=== PATIENT | female | born 1980 | race African-American/Black ===

== ENCOUNTER 2017-06-07 20:01 | Inpatient (IN) | payer MEDICAID ==
[2017-06-07] MEDS ORDERED: HYDROmorphone 2 MG/ML SDV IVPUSH ONE (20:29)
[2017-06-07] MEDS ORDERED: Pantoprazole 40 MG Vial IVPUSH ONE (20:29)
[2017-06-07] MEDS ORDERED: Sodium Chloride 0.9% 1,000 ML IV ONE ×2 (20:29→22:56)
[2017-06-07] MEDS ORDERED: Sodium Chloride 0.9% 2.5 ML Syringe FLUSH PRN (20:29)
[2017-06-07] MEDS ORDERED: Sodium Chloride 0.9% 10 ML Syringe FLUSH PRN (20:29)
[2017-06-07] MEDS ORDERED: Ondansetron 4 MG/2 ML SDV IVPUSH ONE (20:29)
--- NOTE | 2017-06-07 20:34 | EDM.PDOC ---
ED HPI GENERAL MEDICAL PROBLEM - General Chief Complaint: Abdominal Pain Stated Complaint: PT HAS STOMACH AND BACK PAIN Time Seen by Provider: 06/07/17 20:22 - History of Present Illness INITIAL COMMENTS - FREE TEXT/NARRATIVE: HISTORY AND PHYSICAL: History of present illness: The patient is a 36-year-old female who presents with epigastric and left upper abdominal pain associated with nausea and vomiting but no diarrhea which is similar to her 2 prior episodes of pancreatitis. Patient states that she has only one admission for the pancreatitis in the past and she has had a cholecystectomy as they hypothesized that was the cause of the pancreatitis. The patient does drink socially and last drink alcohol a few days ago and she is aware that this can trigger her pancreatitis but she says she is not drinking excessively or taking any medications that would cause this. The patient presents to me tonight stating that she has had several weeks of this discomfort but it seems to be accelerating and she's been trying to treat it at home symptomatically. Patient has not had a fever but says the pain is in the typical location for pancreatitis which is epigastric and left upper abdomen radiating to her back. She has no chest pain or shortness of breath. She has no flank pain no urinary complaints and she says that she is not "because she knows". 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 Patient has not been using anything strong for this pain or nausea and vomiting. Review of systems: As per history of present illness and below otherwise all systems reviewed and negative. Past medical history: As per history of present illness and as reviewed below otherwise noncontributory. Surgical history: As per history of present illness and as reviewed below otherwise noncontributory. Social history: No reported history of drug or alcohol abuse. Family history: As per history of present illness and as reviewed below otherwise noncontributory. Physical exam: General: Well-developed well-nourished female who is nontoxic and speaking clearly to me in the ED. She has a slight faint smell of either mouthwash or alcohol on her breath. Vital signs are stable HEENT: Atraumatic, normocephalic, pupils reactive, negative for conjunctival pallor or scleral icterus, mucous membranes moist, throat clear, neck supple, nontender, trachea midline. Lungs: Clear to auscultation, breath sounds equal bilaterally, chest nontender. Heart: S1S2, regular, negative for clicks, rubs, or JVD. Abdomen: Soft, nondistended, mildly tender in the epigastrium and left upper quadrant on deep palpation without rebound or guarding and bowel sounds are hypoactive. Negative for masses or hepatosplenomegaly. Negative for costovertebral tenderness. Pelvis: Stable nontender. Genitourinary: Deferred. Rectal: Deferred. Extremities: Atraumatic, negative for cords or calf pain. Neurovascular unremarkable. No pedal edema or leg asymmetry Neuro: Awake, alert, oriented. Cranial nerves II through XII unremarkable. Cerebellum unremarkable. Motor and sensory unremarkable throughout. Exam nonfocal. The patient is exhibiting no tremulousness Diagnostics: EKG CBC CMP amylase lipase alcohol level UA UCG magnesium level CT scan urine culture Therapeutics: IV IV fluids Dilaudid Protonix Zofran magnesium Levaquin The patient was sleeping comfortably and I woke her and All testing results were discussed with the patient including her elevated liver function tests which is likely due to her chronic episodic alcohol use. Her UTI was also discussed with her and the need for treatment. I will give her magnesium for a slightly low mag level and Levaquin for her UTI. A urine culture was added. Case was discussed with Dr. Stapleton at 2255p and he accepts the patient for inpatient care. The patient is aware of the admission and agrees Impression: Acute pancreatitis, Elevated liver function tests with history of chronic alcohol use, UTI, slight hypomagnesemia Definitive disposition and diagnosis as appropriate pending reevaluation and review of above. Middle Abdomen Pain Score (Numeric/FACES): 3 - Related Data Allergies Allergy/AdvReac Type Severity Reaction Status Date / Time Penicillins Allergy Anaphylactic Verified 06/07/17 20:23 Shock Pertussis Vaccines Allergy Other Verified 06/07/17 20:23 Home Meds: Home Meds . [No Known Home Meds] 06/07/17 [History] Past Medical History Gastrointestinal History: Reports: Pancreatitis - Past Surgical History GI Surgical History: Reports: Cholecystectomy Female Surgical History: Reports: Tubal Ligation Social & Family History - Tobacco Use Smoking Status *Q: Current Every Day Smoker Years of Tobacco use: 10 Packs/Tins Daily: 0.4 - Caffeine Use Caffeine Use: Reports: None - Recreational Drug Use Recreational Drug Use: Yes Drug Use in Last 12 Months: No Recreational Drug Type: Reports: Marijuana/Hashish ED ROS GENERAL - Review of Systems Review Of Systems: ROS reveals no pertinent complaints other than HPI. ED EXAM, GENERAL - Physical Exam Exam: See Below (See dictation) Course - Vital Signs Last Recorded V/S: Last Vital Signs Temp 36.5 C 06/07/17 20:18 Pulse 90 06/07/17 20:18 Resp 12 06/07/17 20:18 BP 114/70 06/07/17 20:18 Pulse Ox 97 06/07/17 20:18 - Orders/Labs/Meds Orders: Active Orders 24 hr Category Date Time Status Patient Status [ADT] Stat ADT 06/07/17 22:56 Ordered EKG Documentation Completion [RC] STAT Care 06/07/17 20:34 Active Abdomen Pelvis w Cont [CT] Stat Exams 06/07/17 20:29 Taken ACETAMINOPHEN [CHEM] Stat Lab 06/07/17 22:56 Ordered CULTURE URINE [RM] Stat Lab 06/07/17 21:25 Received HCG QUALITATIVE,URINE [URCHEM] Stat Lab 06/07/17 21:21 Ordered UA W/MICROSCOPIC [URIN] Stat Lab 06/07/17 21:21 Ordered Levofloxacin/Dextrose 5%-Water [Levaquin in D5W 500 MG/ Med 06/07/17 22:57 Ordered 100 ML] 500 mg Premix Bag 1 bag IV ONETIME Magnesium Sulfate/Water [Magnesium Sulfate 2 GM in Med 06/07/17 22:57 Ordered Water 50 ML] 2 gm Premix Bag 1 bag IV ONETIME Sodium Chloride 0.9% [Normal Saline] 1,000 ml Med 06/07/17 22:56 Ordered IV .Bolus Sodium Chloride 0.9% [Saline Flush] Med 06/07/17 20:29 Active 10 ml FLUSH ASDIRECTED PRN Sodium Chloride 0.9% [Saline Flush] Med 06/07/17 20:29 Active 2.5 ml FLUSH ASDIRECTED PRN Saline Lock Insert [OM.PC] Stat Oth 06/07/17 20:28 Ordered Medication Orders Sodium Chloride (Normal Saline) 1,000 mls @ 999 mls/hr IV .Bolus ONE Stop: 06/07/17 23:56 Levofloxacin/Dextrose 500 mg/ (Premix) 100 mls @ 100 mls/hr IV ONETIME ONE Stop: 06/07/17 23:56 Sodium Chloride (Saline Flush) 10 ml FLUSH ASDIRECTED PRN PRN Reason: Keep Vein Open Sodium Chloride (Saline Flush) 2.5 ml FLUSH ASDIRECTED PRN PRN Reason: Keep Vein Open Labs: Laboratory Tests 06/07/17 06/07/17 06/07/17 Range/Units 20:46 20:46 21:21 WBC 5.18 (4.0-11.0) K/uL RBC 4.16 L (4.30-5.90) M/uL Hgb 13.4 (12.0-16.0) g/dL Hct 39.0 (36.0-46.0) % MCV 93.8 (80.0-98.0) fL MCH 32.2 H (27.0-32.0) pg MCHC 34.4 (31.0-37.0) g/dL RDW Std Deviation 44.6 (28.0-62.0) fl RDW Coeff of Kristi 13 (11.0-15.0) % Plt Count 261 (150-400) K/uL MPV 10.00 (7.40-12.00) fL Neut % (Auto) 53.3 (48.0-80.0) % Lymph % (Auto) 35.9 (16.0-40.0) % [place] % (Auto) 7.9 (0.0-15.0) % Eos % (Auto) 2.5 (0.0-7.0) % Baso % (Auto) 0.4 (0.0-1.5) % Neut # (Auto) 2.8 (1.4-5.7) K/uL Lymph # (Auto) 1.9 (0.6-2.4) K/uL [place] # (Auto) 0.4 (0.0-0.8) K/uL Eos # (Auto) 0.1 (0.0-0.7) K/uL Baso # (Auto) 0.0 (0.0-0.1) K/uL Nucleated RBC % 0.0 /100WBC Nucleated RBCs # 0 K/uL Sodium 138 (136-145) mmol/L Potassium 4.3 (3.5-5.1) mmol/L Chloride 103 (98-107) mmol/L Carbon Dioxide 25.3 (21.0-32.0) mmol/L BUN 8 (7.0-18.0) mg/dL Creatinine 0.8 (0.6-1.0) mg/dL Est Cr Clr Drug Dosing 71.17 mL/min Estimated GFR (MDRD) > 60.0 ml/min Glucose 73 L (74-106) mg/dL Calcium 9.6 (8.5-10.1) mg/dL Magnesium 1.4 L (1.5-2.0) mg/dL Total Bilirubin 0.7 (0.2-1.0) mg/dL AST 908 H (15-37) IU/L ALT 527 H (14-63) IU/L Alkaline Phosphatase 219 H (46-116) U/L Total Protein 7.5 (6.4-8.2) g/dL Albumin 4.0 (3.4-5.0) g/dL Globulin 3.5 (2.0-3.5) g/dL Albumin/Globulin Ratio 1.1 L (1.3-2.8) Amylase 81 (25-115) U/L Lipase 232 (73-393) U/L Urine Color YELLOW Urine Appearance SLT CLOUDY Urine pH 6.5 (5.0-8.0) Ur Specific [place] 1.025 (1.001-1.035) Urine Protein TRACE (NEGATIVE) mg/dL Urine Glucose (UA) NEGATIVE (NEGATIVE) mg/dL Urine Ketones NEGATIVE (NEGATIVE) mg/dL Urine Occult Blood NEGATIVE (NEGATIVE) Urine Nitrite NEGATIVE (NEGATIVE) Urine Bilirubin SMALL H (NEGATIVE) Urine Ictotest POSITIVE Urine Urobilinogen 1.0 (<2.0) EU/dL Ur Leukocyte Esterase MODERATE (NEGATIVE) Urine RBC 2-3 (0-2/HPF) Urine WBC 20-25 (0-5/HPF) Ur Epithelial Cells MANY (NONE-FEW) Urine Bacteria 1+ H (NEGATIVE) Urine Mucus MODERATE (NONE-MOD) Urine HCG, Qual (NEGATIVE) Ethyl Alcohol 8 mg/dL 06/07/17 Range/Units 21:21 WBC (4.0-11.0) K/uL RBC (4.30-5.90) M/uL Hgb (12.0-16.0) g/dL Hct (36.0-46.0) % MCV (80.0-98.0) fL MCH (27.0-32.0) pg MCHC (31.0-37.0) g/dL RDW Std Deviation (28.0-62.0) fl RDW Coeff of Kristi (11.0-15.0) % Plt Count (150-400) K/uL MPV (7.40-12.00) fL Neut % (Auto) (48.0-80.0) % Lymph % (Auto) (16.0-40.0) % [place] % (Auto) (0.0-15.0) % Eos % (Auto) (0.0-7.0) % Baso % (Auto) (0.0-1.5) % Neut # (Auto) (1.4-5.7) K/uL Lymph # (Auto) (0.6-2.4) K/uL [place] # (Auto) (0.0-0.8) K/uL Eos # (Auto) (0.0-0.7) K/uL Baso # (Auto) (0.0-0.1) K/uL Nucleated RBC % /100WBC Nucleated RBCs # K/uL Sodium (136-145) mmol/L Potassium (3.5-5.1) mmol/L Chloride (98-107) mmol/L Carbon Dioxide (21.0-32.0) mmol/L BUN (7.0-18.0) mg/dL Creatinine (0.6-1.0) mg/dL Est Cr Clr Drug Dosing mL/min Estimated GFR (MDRD) ml/min Glucose (74-106) mg/dL Calcium (8.5-10.1) mg/dL Magnesium (1.5-2.0) mg/dL Total Bilirubin (0.2-1.0) mg/dL AST (15-37) IU/L ALT (14-63) IU/L Alkaline Phosphatase (46-116) U/L Total Protein (6.4-8.2) g/dL Albumin (3.4-5.0) g/dL Globulin (2.0-3.5) g/dL Albumin/Globulin Ratio (1.3-2.8) Amylase (25-115) U/L Lipase (73-393) U/L Urine Color Urine Appearance Urine pH (5.0-8.0) Ur Specific [place] (1.001-1.035) Urine Protein (NEGATIVE) mg/dL Urine Glucose (UA) (NEGATIVE) mg/dL Urine Ketones (NEGATIVE) mg/dL Urine Occult Blood (NEGATIVE) Urine Nitrite (NEGATIVE) Urine Bilirubin (NEGATIVE) Urine Ictotest Urine Urobilinogen (<2.0) EU/dL Ur Leukocyte Esterase (NEGATIVE) Urine RBC (0-2/HPF) Urine WBC (0-5/HPF) Ur Epithelial Cells (NONE-FEW) Urine Bacteria (NEGATIVE) Urine Mucus (NONE-MOD) Urine HCG, Qual NEGATIVE (NEGATIVE) Ethyl Alcohol mg/dL Meds: Medications Generic Name Dose Route Start Last Admin Trade Name Freq PRN Reason Stop Dose Admin Sodium Chloride 1,000 mls @ 999 mls/hr 06/07/17 22:56 Normal Saline IV 06/07/17 23:56 .Bolus ONE Levofloxacin/Dextrose 500 mg/ 100 mls @ 100 mls/hr 06/07/17 22:57 Premix IV 06/07/17 23:56 ONETIME ONE Sodium Chloride 10 ml 06/07/17 20:29 Saline Flush FLUSH ASDIRECTED PRN Keep Vein Open Sodium Chloride 2.5 ml 06/07/17 20:29 Saline Flush FLUSH ASDIRECTED PRN Keep Vein Open Discontinued Medications Generic Name Dose Route Start Last Admin Trade Name Fredrick PRN Reason Stop Dose Admin Hydromorphone HCl 0.5 mg 06/07/17 20:29 06/07/17 20:53 Dilaudid IVPUSH 06/07/17 20:30 0.5 mg ONETIME ONE Administration Hydromorphone HCl Confirm 06/07/17 20:57 06/07/17 21:55 Dilaudid Administered 06/07/17 20:58 Not Given Dose 2 mg .ROUTE .STK-MED ONE Sodium Chloride 1,000 mls @ 999 mls/hr 06/07/17 20:29 06/07/17 20:50 Normal Saline IV 06/07/17 21:29 999 mls/hr STAT ONE Administration Iopamidol 80 ml 06/07/17 21:56 06/07/17 22:16 Isovue Multipack-370 (76%) IVPUSH 06/07/17 21:57 80 ml ONETIME ONE Administration Ondansetron HCl 4 mg 06/07/17 20:29 06/07/17 20:53 Zofran IVPUSH 06/07/17 20:30 4 mg ONETIME ONE Administration Pantoprazole Sodium 40 mg 06/07/17 20:29 06/07/17 20:52 Protonix Iv IVPUSH 06/07/17 20:30 40 mg NOW ONE Administration Departure - Departure Time of Disposition: 22:58 Disposition: Admitted As Inpatient 68 Condition: Good Clinical Impression: Pancreatitis Qualifiers: Chronicity: acute Pancreatitis type: unspecified pancreatitis type Acute pancreatitis complication: unspecified Qualified Code(s): K85.90 - Acute pancreatitis without necrosis or infection, unspecified UTI (urinary tract infection) Qualifiers: Urinary tract infection type: site unspecified Hematuria presence: without hematuria Qualified Code(s): N39.0 - Urinary tract infection, site not specified - Discharge Information Referrals: PCP,None [Primary Care Provider] - Forms: ED Department Discharge - My Orders Last 24 Hours: My Active Orders 06/07/17 20:28 Saline Lock Insert [OM.PC] Stat 06/07/17 20:29 Abdomen Pelvis w Cont [CT] Stat Sodium Chloride 0.9% [Saline Flush] 10 ml FLUSH ASDIRECTED PRN Sodium Chloride 0.9% [Saline Flush] 2.5 ml FLUSH ASDIRECTED PRN 06/07/17 20:34 EKG Documentation Completion [RC] STAT 06/07/17 21:21 HCG QUALITATIVE,URINE [URCHEM] Stat UA W/MICROSCOPIC [URIN] Stat 06/07/17 21:25 CULTURE URINE [RM] Stat 06/07/17 22:56 Patient Status [ADT] Stat ACETAMINOPHEN [CHEM] Stat 06/07/17 22:57 Levofloxacin/Dextrose 5%-Water [Levaquin in D5W 500 MG/100 ML] 500 mg Premix Bag 1 bag IV ONETIME Magnesium Sulfate/Water [Magnesium Sulfate 2 GM in Water 50 ML] 2 gm Premix Bag 1 bag IV ONETIME - Assessment/Plan Last 24 Hours: My Active Orders 06/07/17 20:28 Saline Lock Insert [OM.PC] Stat 06/07/17 20:29 Abdomen Pelvis w Cont [CT] Stat Sodium Chloride 0.9% [Saline Flush] 10 ml FLUSH ASDIRECTED PRN Sodium Chloride 0.9% [Saline Flush] 2.5 ml FLUSH ASDIRECTED PRN 06/07/17 20:34 EKG Documentation Completion [RC] STAT 06/07/17 21:21 HCG QUALITATIVE,URINE [URCHEM] Stat UA W/MICROSCOPIC [URIN] Stat 06/07/17 21:25 CULTURE URINE [RM] Stat 06/07/17 22:56 Patient Status [ADT] Stat ACETAMINOPHEN [CHEM] Stat 06/07/17 22:57 Levofloxacin/Dextrose 5%-Water [Levaquin in D5W 500 MG/100 ML] 500 mg Premix Bag 1 bag IV ONETIME Magnesium Sulfate/Water [Magnesium Sulfate 2 GM in Water 50 ML] 2 gm Premix Bag 1 bag IV ONETIME
[2017-06-07] MEDS ORDERED: HYDROmorphone 2 MG/ML SDV ONE (20:57)
[2017-06-07 21:32] LABS: CHLORIDE,CL 103 mmol/L (98-107); SODIUM,NA 138 mmol/L (136-145)
[2017-06-07] MEDS ORDERED: Iopamidol 755 MG/ML 200 ML Multipack Bottle IVPUSH ONE (21:56)
[2017-06-07] MEDS ORDERED: Magnesium Sulfate/Water 2 GM in Premix Bag 1 BAG IV ONE (22:57)
[2017-06-07] MEDS ORDERED: Levofloxacin/Dextrose 5%-Water 500 MG in Premix Bag 1 BAG IV ONE (22:57)
[2017-06-07] MEDS ORDERED: LORazepam 2 MG/ML SDV IVPUSH PRN (23:34)
[2017-06-07] MEDS ORDERED: Ondansetron 4 MG/2 ML SDV IVPUSH PRN (23:35)
[2017-06-07] MEDS ORDERED: Pantoprazole 40 MG Vial IVPUSH SCH (23:45)
--- NOTE | 2017-06-08 00:01 | PCM.HP ---
H&P History of Present Illness - General Admit Problem/Dx: Admission Diagnosis/Problem Admission Diagnosis/Problem Pancreatitis - History of Present Illness Initial Comments - Free Text/Narative: 36 yo female with pmh of pancreatitis who presents with several week history of epigastric abdominal pain that radiates to the back. It has worsened in the past two days and today patient had nausea and vomiting. She was seen in the ED and CT scan of abdomen reported acute on chronic pancreatitis. Mild degree of fat stranding and fluid adjacent to the pancreatic head with liekly small pancreatic head pseudocyst. Patient admits to heaving alcohol use this week. Middle Abdomen Pain Score (Numeric/FACES): 1 - Related Data Allergies/Adverse Reactions: Allergies Allergy/AdvReac Type Severity Reaction Status Date / Time Penicillins Allergy Anaphylactic Verified 06/07/17 20:23 Shock Pertussis Vaccines Allergy Other Verified 06/07/17 20:23 Home Medications: Home Meds . [No Known Home Meds] 06/07/17 [History] Past Medical History Gastrointestinal History: Reports: Pancreatitis - Past Surgical History GI Surgical History: Reports: Cholecystectomy Female Surgical History: Reports: Tubal Ligation Social & Family History - Tobacco Use Smoking Status *Q: Current Every Day Smoker Years of Tobacco use: 10 Packs/Tins Daily: 0.4 - Caffeine Use Caffeine Use: Reports: None - Recreational Drug Use Recreational Drug Use: Yes Drug Use in Last 12 Months: No Recreational Drug Type: Reports: Marijuana/Hashish H&P Review of Systems - Review of Systems: Review Of Systems: ROS reveals no pertinent complaints other than HPI. Exam - Exam Exam: See Below - Vital Signs Vital Signs: Last Vital Signs Temp 36.3 C 06/07/17 23:09 Pulse 68 06/07/17 23:09 Resp 18 06/07/17 23:09 BP 94/64 06/07/17 23:09 Pulse Ox 100 06/07/17 23:09 Weight: 67.4 kg - Exam General: Alert, Oriented HEENT: Mucosa Moist & [place] Neck: Supple, Trachea Midline Lungs: Clear to Auscultation, Normal Respiratory Effort Cardiovascular: Regular Rate, Regular Rhythm GI/Abdominal Exam: Normal Bowel Sounds, Soft, Non-Tender Extremities: Non-Tender, No Pedal Edema Skin: Warm, Dry, Intact - Patient Data Lab Results Last 24 hrs: Laboratory Results - last 24 hr 06/07/17 06/07/17 06/07/17 Range/Units 17:56 20:46 20:46 WBC 5.18 (4.0-11.0) K/uL RBC 4.16 L (4.30-5.90) M/uL Hgb 13.4 (12.0-16.0) g/dL Hct 39.0 (36.0-46.0) % MCV 93.8 (80.0-98.0) fL MCH 32.2 H (27.0-32.0) pg MCHC 34.4 (31.0-37.0) g/dL RDW Std Deviation 44.6 (28.0-62.0) fl RDW Coeff of Kristi 13 (11.0-15.0) % Plt Count 261 (150-400) K/uL MPV 10.00 (7.40-12.00) fL Neut % (Auto) 53.3 (48.0-80.0) % Lymph % (Auto) 35.9 (16.0-40.0) % [place] % (Auto) 7.9 (0.0-15.0) % Eos % (Auto) 2.5 (0.0-7.0) % Baso % (Auto) 0.4 (0.0-1.5) % Neut # (Auto) 2.8 (1.4-5.7) K/uL Lymph # (Auto) 1.9 (0.6-2.4) K/uL [place] # (Auto) 0.4 (0.0-0.8) K/uL Eos # (Auto) 0.1 (0.0-0.7) K/uL Baso # (Auto) 0.0 (0.0-0.1) K/uL Nucleated RBC % 0.0 /100WBC Nucleated RBCs # 0 K/uL Sodium 138 (136-145) mmol/L Potassium 4.3 (3.5-5.1) mmol/L Chloride 103 (98-107) mmol/L Carbon Dioxide 25.3 (21.0-32.0) mmol/L BUN 8 (7.0-18.0) mg/dL Creatinine 0.8 (0.6-1.0) mg/dL Est Cr Clr Drug Dosing 71.17 mL/min Estimated GFR (MDRD) > 60.0 ml/min Glucose 73 L (74-106) mg/dL Calcium 9.6 (8.5-10.1) mg/dL Magnesium 1.4 L (1.5-2.0) mg/dL Total Bilirubin 0.7 (0.2-1.0) mg/dL AST 908 H (15-37) IU/L ALT 527 H (14-63) IU/L Alkaline Phosphatase 219 H (46-116) U/L Total Protein 7.5 (6.4-8.2) g/dL Albumin 4.0 (3.4-5.0) g/dL Globulin 3.5 (2.0-3.5) g/dL Albumin/Globulin Ratio 1.1 L (1.3-2.8) Amylase 81 (25-115) U/L Lipase 232 (73-393) U/L Urine Color Urine Appearance Urine pH (5.0-8.0) Ur Specific [place] (1.001-1.035) Urine Protein (NEGATIVE) mg/dL Urine Glucose (UA) (NEGATIVE) mg/dL Urine Ketones (NEGATIVE) mg/dL Urine Occult Blood (NEGATIVE) Urine Nitrite (NEGATIVE) Urine Bilirubin (NEGATIVE) Urine Ictotest Urine Urobilinogen (<2.0) EU/dL Ur Leukocyte Esterase (NEGATIVE) Urine RBC (0-2/HPF) Urine WBC (0-5/HPF) Ur Epithelial Cells (NONE-FEW) Urine Bacteria (NEGATIVE) Urine Mucus (NONE-MOD) Urine HCG, Qual (NEGATIVE) Acetaminophen 0.0 ug/mL Ethyl Alcohol 8 mg/dL 06/07/17 06/07/17 Range/Units 21:21 21:21 WBC (4.0-11.0) K/uL RBC (4.30-5.90) M/uL Hgb (12.0-16.0) g/dL Hct (36.0-46.0) % MCV (80.0-98.0) fL MCH (27.0-32.0) pg MCHC (31.0-37.0) g/dL RDW Std Deviation (28.0-62.0) fl RDW Coeff of Kristi (11.0-15.0) % Plt Count (150-400) K/uL MPV (7.40-12.00) fL Neut % (Auto) (48.0-80.0) % Lymph % (Auto) (16.0-40.0) % [place] % (Auto) (0.0-15.0) % Eos % (Auto) (0.0-7.0) % Baso % (Auto) (0.0-1.5) % Neut # (Auto) (1.4-5.7) K/uL Lymph # (Auto) (0.6-2.4) K/uL [place] # (Auto) (0.0-0.8) K/uL Eos # (Auto) (0.0-0.7) K/uL Baso # (Auto) (0.0-0.1) K/uL Nucleated RBC % /100WBC Nucleated RBCs # K/uL Sodium (136-145) mmol/L Potassium (3.5-5.1) mmol/L Chloride (98-107) mmol/L Carbon Dioxide (21.0-32.0) mmol/L BUN (7.0-18.0) mg/dL Creatinine (0.6-1.0) mg/dL Est Cr Clr Drug Dosing mL/min Estimated GFR (MDRD) ml/min Glucose (74-106) mg/dL Calcium (8.5-10.1) mg/dL Magnesium (1.5-2.0) mg/dL Total Bilirubin (0.2-1.0) mg/dL AST (15-37) IU/L ALT (14-63) IU/L Alkaline Phosphatase (46-116) U/L Total Protein (6.4-8.2) g/dL Albumin (3.4-5.0) g/dL Globulin (2.0-3.5) g/dL Albumin/Globulin Ratio (1.3-2.8) Amylase (25-115) U/L Lipase (73-393) U/L Urine Color YELLOW Urine Appearance SLT CLOUDY Urine pH 6.5 (5.0-8.0) Ur Specific [place] 1.025 (1.001-1.035) Urine Protein TRACE (NEGATIVE) mg/dL Urine Glucose (UA) NEGATIVE (NEGATIVE) mg/dL Urine Ketones NEGATIVE (NEGATIVE) mg/dL Urine Occult Blood NEGATIVE (NEGATIVE) Urine Nitrite NEGATIVE (NEGATIVE) Urine Bilirubin SMALL H (NEGATIVE) Urine Ictotest POSITIVE Urine Urobilinogen 1.0 (<2.0) EU/dL Ur Leukocyte Esterase MODERATE (NEGATIVE) Urine RBC 2-3 (0-2/HPF) Urine WBC 20-25 (0-5/HPF) Ur Epithelial Cells MANY (NONE-FEW) Urine Bacteria 1+ H (NEGATIVE) Urine Mucus MODERATE (NONE-MOD) Urine HCG, Qual NEGATIVE (NEGATIVE) Acetaminophen ug/mL Ethyl Alcohol mg/dL Result Diagrams: 06/07/17 20:46 06/07/17 20:46 Problem List Initiated/Reviewed/Updated: Yes Orders Last 24hrs: Active Orders 24 hr Category Date Time Status Patient Status [ADT] Stat ADT 06/07/17 22:56 Active Accu Check [Blood Glucose Check, Bedside] [RC] Q3H Care 06/07/17 23:32 Active Oxygen Therapy [RC] PRN Care 06/07/17 23:35 Ordered VTE/DVT Education [RC] PER UNIT ROUTINE Care 06/07/17 23:35 Ordered Vital Signs [RC] Q4H Care 06/07/17 23:35 Ordered Nothing per Oral Now Diet [DIET] Diet 06/07/17 Breakfast Ordered Abdomen Pelvis w Cont [CT] Stat Exams 06/07/17 20:29 Taken CBC WITH AUTO DIFF [HEME] AM Lab 06/08/17 05:11 Ordered COMPREHENSIVE METABOLIC PN,CMP [CHEM] AM Lab 06/08/17 05:11 Ordered CULTURE URINE [RM] Stat Lab 06/07/17 21:25 Received HCG QUALITATIVE,URINE [URCHEM] Stat Lab 06/07/17 21:21 Ordered UA W/MICROSCOPIC [URIN] Stat Lab 06/07/17 21:21 Ordered Dextrose 5%-0.9% NaCl [Dextrose 5%-Normal Saline] 1,000 Med 06/07/17 23:45 Ordered ml IV ASDIRECTED Folic Acid Med 06/07/17 23:45 Ordered 1 mg SUBCUT DAILY HYDROmorphone [Dilaudid] Med 06/07/17 23:35 Ordered 0.5 mg IVPUSH Q2H PRN LORazepam [Ativan] Med 06/07/17 23:34 Ordered See Protocol IVPUSH Q4H PRN Levofloxacin/Dextrose 5%-Water [Levaquin in D5W 500 MG/ Med 06/07/17 22:57 Active 100 ML] 500 mg Premix Bag 1 bag IV ONETIME Levofloxacin/Dextrose 5%-Water [Levaquin in D5W 500 MG/ Med 06/08/17 23:45 Ordered 100 ML] 500 mg Premix Bag 1 bag IV Q24H Magnesium Sulfate/Water [Magnesium Sulfate 2 GM in Med 06/07/17 22:57 Active Water 50 ML] 2 gm Premix Bag 1 bag IV ONETIME Ondansetron [Zofran] Med 06/07/17 23:35 Ordered 4 mg IVPUSH Q4H PRN Sodium Chloride 0.9% [Normal Saline] 1,000 ml Med 06/07/17 22:56 Ordered IV .Bolus Sodium Chloride 0.9% [Saline Flush] Med 06/07/17 20:29 Active 10 ml FLUSH ASDIRECTED PRN Sodium Chloride 0.9% [Saline Flush] Med 06/07/17 20:29 Active 2.5 ml FLUSH ASDIRECTED PRN Thiamine [Vitamin B-1] Med 06/07/17 23:45 Ordered 100 mg IV DAILY Saline Lock Insert [OM.PC] Stat Oth 06/07/17 20:28 Ordered Sequential Compression Device [OM.PC] Per Unit Routine Oth 06/07/17 23:35 Ordered Resuscitation Status Routine Resus Stat 06/07/17 23:35 Ordered Medication Orders Folic Acid (Folic Acid) 1 mg SUBCUT DAILY RASHAD Sodium Chloride (Normal Saline) 1,000 mls @ 999 mls/hr IV .Bolus ONE Stop: 06/07/17 23:56 Last Admin: 06/07/17 23:27 Dose: 999 mls/hr Levofloxacin/Dextrose 500 mg/ (Premix) 100 mls @ 100 mls/hr IV ONETIME ONE Stop: 06/07/17 23:56 Last Admin: 06/07/17 23:10 Dose: 100 mls/hr Magnesium Sulfate 2 gm/ Premix 50 mls @ 25 mls/hr IV ONETIME ONE Stop: 06/08/17 00:56 Dextrose/Sodium Chloride (Dextrose 5%-Normal Saline) 1,000 mls @ 200 mls/hr IV ASDIRECTED RASHAD Levofloxacin/Dextrose 500 mg/ (Premix) 100 mls @ 100 mls/hr IV Q24H RASHAD Lorazepam (Ativan) 0 mg IVPUSH Q4H PRN; Protocol PRN Reason: Agitation Sodium Chloride (Saline Flush) 10 ml FLUSH ASDIRECTED PRN PRN Reason: Keep Vein Open Sodium Chloride (Saline Flush) 2.5 ml FLUSH ASDIRECTED PRN PRN Reason: Keep Vein Open Thiamine HCl (Vitamin B-1) 100 mg IV DAILY RASHAD Assessment/Plan Comment:: 36 yo female admitted with subacute pancreatitis. We will treat with IV fluids , bowel rest and prn narcotics. Will place on CIWA protocol, thiamin and folic acid. Levaquin is add for UTI.
[2017-06-08] MEDS: Folic Acid 50 MG/10 ML MDV SUBCUT SCH ×2 (00:22→10:36)
[2017-06-08] MEDS: Thiamine 200 MG/2 ML MDV IV SCH ×2 (00:23→10:35)
[2017-06-08] MEDS: Dextrose 5%-0.9% NaCl 1,000 ML IV SCH ×4 (00:24→17:49)
[2017-06-08] MEDS: HYDROmorphone 2 MG/ML SDV IVPUSH PRN ×3 (01:36→19:10)
[2017-06-08 05:45] LABS: CHLORIDE,CL 108 mmol/L (98-107); SODIUM,NA 138 mmol/L (136-145)
[2017-06-08] MEDS: Nicotine 14 MG/24 Hr Patch TRDERM SCH (10:35)
[2017-06-08] MEDS: Pantoprazole 40 MG Vial IVPUSH SCH ×2 (10:37→20:43)
--- NOTE | 2017-06-08 14:31 | PCM.PN ---
- General Info Date of Service: 06/08/17 Subjective Update: Patient states that she is no longer nauseous, she still having mild abdominal pain, she would like to eat however due to the abdominal pain secondary to the acute on chronic pancreatitis we will still hold off for just a little bit and see how she does after known. - Patient Data Vitals - Most Recent: Last Vital Signs Temp 36.3 C 06/08/17 11:36 Pulse 63 06/08/17 11:36 Resp 20 06/08/17 11:36 BP 98/54 L 06/08/17 11:36 Pulse Ox 100 06/08/17 11:36 Weight - Most Recent: 66.8 kg I&O - Last 24 Hours: Intake & Output 06/07/17 06/08/17 06/08/17 22:59 06:59 14:59 Intake Total 3150 Balance 3150 Lab Results Last 24 Hours: Laboratory Results - last 24 hr 06/07/17 06/07/17 06/07/17 Range/Units 17:56 20:46 20:46 WBC 5.18 (4.0-11.0) K/uL RBC 4.16 L (4.30-5.90) M/uL Hgb 13.4 (12.0-16.0) g/dL Hct 39.0 (36.0-46.0) % MCV 93.8 (80.0-98.0) fL MCH 32.2 H (27.0-32.0) pg MCHC 34.4 (31.0-37.0) g/dL RDW Std Deviation 44.6 (28.0-62.0) fl RDW Coeff of Kristi 13 (11.0-15.0) % Plt Count 261 (150-400) K/uL MPV 10.00 (7.40-12.00) fL Neut % (Auto) 53.3 (48.0-80.0) % Lymph % (Auto) 35.9 (16.0-40.0) % Andrew % (Auto) 7.9 (0.0-15.0) % Eos % (Auto) 2.5 (0.0-7.0) % Baso % (Auto) 0.4 (0.0-1.5) % Neut # (Auto) 2.8 (1.4-5.7) K/uL Lymph # (Auto) 1.9 (0.6-2.4) K/uL Andrew # (Auto) 0.4 (0.0-0.8) K/uL Eos # (Auto) 0.1 (0.0-0.7) K/uL Baso # (Auto) 0.0 (0.0-0.1) K/uL Nucleated RBC % 0.0 /100WBC Nucleated RBCs # 0 K/uL Sodium 138 (136-145) mmol/L Potassium 4.3 (3.5-5.1) mmol/L Chloride 103 (98-107) mmol/L Carbon Dioxide 25.3 (21.0-32.0) mmol/L BUN 8 (7.0-18.0) mg/dL Creatinine 0.8 (0.6-1.0) mg/dL Est Cr Clr Drug Dosing 71.17 mL/min Estimated GFR (MDRD) > 60.0 ml/min Glucose 73 L (74-106) mg/dL POC Glucose (60-110) mg/dL Calcium 9.6 (8.5-10.1) mg/dL Magnesium 1.4 L (1.5-2.0) mg/dL Total Bilirubin 0.7 (0.2-1.0) mg/dL AST 908 H (15-37) IU/L ALT 527 H (14-63) IU/L Alkaline Phosphatase 219 H (46-116) U/L Total Protein 7.5 (6.4-8.2) g/dL Albumin 4.0 (3.4-5.0) g/dL Globulin 3.5 (2.0-3.5) g/dL Albumin/Globulin Ratio 1.1 L (1.3-2.8) Amylase 81 (25-115) U/L Lipase 232 (73-393) U/L Urine Color Urine Appearance Urine pH (5.0-8.0) Ur Specific [place] (1.001-1.035) Urine Protein (NEGATIVE) mg/dL Urine Glucose (UA) (NEGATIVE) mg/dL Urine Ketones (NEGATIVE) mg/dL Urine Occult Blood (NEGATIVE) Urine Nitrite (NEGATIVE) Urine Bilirubin (NEGATIVE) Urine Ictotest Urine Urobilinogen (<2.0) EU/dL Ur Leukocyte Esterase (NEGATIVE) Urine RBC (0-2/HPF) Urine WBC (0-5/HPF) Ur Epithelial Cells (NONE-FEW) Urine Bacteria (NEGATIVE) Urine Mucus (NONE-MOD) Urine HCG, Qual (NEGATIVE) Acetaminophen 0.0 ug/mL Ethyl Alcohol 8 mg/dL 06/07/17 06/07/17 06/08/17 Range/Units 21:21 21:21 00:20 WBC (4.0-11.0) K/uL RBC (4.30-5.90) M/uL Hgb (12.0-16.0) g/dL Hct (36.0-46.0) % MCV (80.0-98.0) fL MCH (27.0-32.0) pg MCHC (31.0-37.0) g/dL RDW Std Deviation (28.0-62.0) fl RDW Coeff of Kristi (11.0-15.0) % Plt Count (150-400) K/uL MPV (7.40-12.00) fL Neut % (Auto) (48.0-80.0) % Lymph % (Auto) (16.0-40.0) % Andrew % (Auto) (0.0-15.0) % Eos % (Auto) (0.0-7.0) % Baso % (Auto) (0.0-1.5) % Neut # (Auto) (1.4-5.7) K/uL Lymph # (Auto) (0.6-2.4) K/uL Andrew # (Auto) (0.0-0.8) K/uL Eos # (Auto) (0.0-0.7) K/uL Baso # (Auto) (0.0-0.1) K/uL Nucleated RBC % /100WBC Nucleated RBCs # K/uL Sodium (136-145) mmol/L Potassium (3.5-5.1) mmol/L Chloride (98-107) mmol/L Carbon Dioxide (21.0-32.0) mmol/L BUN (7.0-18.0) mg/dL Creatinine (0.6-1.0) mg/dL Est Cr Clr Drug Dosing mL/min Estimated GFR (MDRD) ml/min Glucose (74-106) mg/dL POC Glucose 97 (60-110) mg/dL Calcium (8.5-10.1) mg/dL Magnesium (1.5-2.0) mg/dL Total Bilirubin (0.2-1.0) mg/dL AST (15-37) IU/L ALT (14-63) IU/L Alkaline Phosphatase (46-116) U/L Total Protein (6.4-8.2) g/dL Albumin (3.4-5.0) g/dL Globulin (2.0-3.5) g/dL Albumin/Globulin Ratio (1.3-2.8) Amylase (25-115) U/L Lipase (73-393) U/L Urine Color YELLOW Urine Appearance SLT CLOUDY Urine pH 6.5 (5.0-8.0) Ur Specific [place] 1.025 (1.001-1.035) Urine Protein TRACE (NEGATIVE) mg/dL Urine Glucose (UA) NEGATIVE (NEGATIVE) mg/dL Urine Ketones NEGATIVE (NEGATIVE) mg/dL Urine Occult Blood NEGATIVE (NEGATIVE) Urine Nitrite NEGATIVE (NEGATIVE) Urine Bilirubin SMALL H (NEGATIVE) Urine Ictotest POSITIVE Urine Urobilinogen 1.0 (<2.0) EU/dL Ur Leukocyte Esterase MODERATE (NEGATIVE) Urine RBC 2-3 (0-2/HPF) Urine WBC 20-25 (0-5/HPF) Ur Epithelial Cells MANY (NONE-FEW) Urine Bacteria 1+ H (NEGATIVE) Urine Mucus MODERATE (NONE-MOD) Urine HCG, Qual NEGATIVE (NEGATIVE) Acetaminophen ug/mL Ethyl Alcohol mg/dL 06/08/17 06/08/17 06/08/17 Range/Units 03:06 04:55 04:55 WBC 5.44 (4.0-11.0) K/uL RBC 3.66 L (4.30-5.90) M/uL Hgb 11.4 L (12.0-16.0) g/dL Hct 34.3 L (36.0-46.0) % MCV 93.7 (80.0-98.0) fL MCH 31.1 (27.0-32.0) pg MCHC 33.2 (31.0-37.0) g/dL RDW Std Deviation 45.0 (28.0-62.0) fl RDW Coeff of Kristi 13 (11.0-15.0) % Plt Count 235 (150-400) K/uL MPV 9.70 (7.40-12.00) fL Neut % (Auto) 31.2 L (48.0-80.0) % Lymph % (Auto) 55.5 H (16.0-40.0) % Andrew % (Auto) 8.1 (0.0-15.0) % Eos % (Auto) 4.8 (0.0-7.0) % Baso % (Auto) 0.4 (0.0-1.5) % Neut # (Auto) 1.7 (1.4-5.7) K/uL Lymph # (Auto) 3.0 H (0.6-2.4) K/uL Andrew # (Auto) 0.4 (0.0-0.8) K/uL Eos # (Auto) 0.3 (0.0-0.7) K/uL Baso # (Auto) 0.0 (0.0-0.1) K/uL Nucleated RBC % 0.0 /100WBC Nucleated RBCs # 0 K/uL Sodium 138 (136-145) mmol/L Potassium 3.7 (3.5-5.1) mmol/L Chloride 108 H (98-107) mmol/L Carbon Dioxide 23.4 (21.0-32.0) mmol/L BUN 5 L (7.0-18.0) mg/dL Creatinine 0.8 (0.6-1.0) mg/dL Est Cr Clr Drug Dosing 71.17 mL/min Estimated GFR (MDRD) > 60.0 ml/min Glucose 104 (74-106) mg/dL POC Glucose 117 H (60-110) mg/dL Calcium 7.8 L (8.5-10.1) mg/dL Magnesium (1.5-2.0) mg/dL Total Bilirubin 0.6 (0.2-1.0) mg/dL AST 250 H (15-37) IU/L ALT 282 H (14-63) IU/L Alkaline Phosphatase 128 H (46-116) U/L Total Protein 5.9 L (6.4-8.2) g/dL Albumin 2.9 L (3.4-5.0) g/dL Globulin 3.0 (2.0-3.5) g/dL Albumin/Globulin Ratio 1.0 L (1.3-2.8) Amylase (25-115) U/L Lipase (73-393) U/L Urine Color Urine Appearance Urine pH (5.0-8.0) Ur Specific [place] (1.001-1.035) Urine Protein (NEGATIVE) mg/dL Urine Glucose (UA) (NEGATIVE) mg/dL Urine Ketones (NEGATIVE) mg/dL Urine Occult Blood (NEGATIVE) Urine Nitrite (NEGATIVE) Urine Bilirubin (NEGATIVE) Urine Ictotest Urine Urobilinogen (<2.0) EU/dL Ur Leukocyte Esterase (NEGATIVE) Urine RBC (0-2/HPF) Urine WBC (0-5/HPF) Ur Epithelial Cells (NONE-FEW) Urine Bacteria (NEGATIVE) Urine Mucus (NONE-MOD) Urine HCG, Qual (NEGATIVE) Acetaminophen ug/mL Ethyl Alcohol mg/dL 06/08/17 06/08/17 Range/Units 04:55 06:05 WBC (4.0-11.0) K/uL RBC (4.30-5.90) M/uL Hgb (12.0-16.0) g/dL Hct (36.0-46.0) % MCV (80.0-98.0) fL MCH (27.0-32.0) pg MCHC (31.0-37.0) g/dL RDW Std Deviation (28.0-62.0) fl RDW Coeff of Kristi (11.0-15.0) % Plt Count (150-400) K/uL MPV (7.40-12.00) fL Neut % (Auto) (48.0-80.0) % Lymph % (Auto) (16.0-40.0) % Andrew % (Auto) (0.0-15.0) % Eos % (Auto) (0.0-7.0) % Baso % (Auto) (0.0-1.5) % Neut # (Auto) (1.4-5.7) K/uL Lymph # (Auto) (0.6-2.4) K/uL Andrew # (Auto) (0.0-0.8) K/uL Eos # (Auto) (0.0-0.7) K/uL Baso # (Auto) (0.0-0.1) K/uL Nucleated RBC % /100WBC Nucleated RBCs # K/uL Sodium (136-145) mmol/L Potassium (3.5-5.1) mmol/L Chloride (98-107) mmol/L Carbon Dioxide (21.0-32.0) mmol/L BUN (7.0-18.0) mg/dL Creatinine (0.6-1.0) mg/dL Est Cr Clr Drug Dosing mL/min Estimated GFR (MDRD) ml/min Glucose (74-106) mg/dL POC Glucose 103 (60-110) mg/dL Calcium (8.5-10.1) mg/dL Magnesium 2.1 H (1.5-2.0) mg/dL Total Bilirubin (0.2-1.0) mg/dL AST (15-37) IU/L ALT (14-63) IU/L Alkaline Phosphatase (46-116) U/L Total Protein (6.4-8.2) g/dL Albumin (3.4-5.0) g/dL Globulin (2.0-3.5) g/dL Albumin/Globulin Ratio (1.3-2.8) Amylase (25-115) U/L Lipase (73-393) U/L Urine Color Urine Appearance Urine pH (5.0-8.0) Ur Specific [place] (1.001-1.035) Urine Protein (NEGATIVE) mg/dL Urine Glucose (UA) (NEGATIVE) mg/dL Urine Ketones (NEGATIVE) mg/dL Urine Occult Blood (NEGATIVE) Urine Nitrite (NEGATIVE) Urine Bilirubin (NEGATIVE) Urine Ictotest Urine Urobilinogen (<2.0) EU/dL Ur Leukocyte Esterase (NEGATIVE) Urine RBC (0-2/HPF) Urine WBC (0-5/HPF) Ur Epithelial Cells (NONE-FEW) Urine Bacteria (NEGATIVE) Urine Mucus (NONE-MOD) Urine HCG, Qual (NEGATIVE) Acetaminophen ug/mL Ethyl Alcohol mg/dL Med Orders - Current: Current Medications Folic Acid (Folic Acid) 1 mg SUBCUT DAILY [facility] Last Admin: 06/08/17 10:36 Dose: 1 mg Hydromorphone HCl (Dilaudid) 0.5 mg IVPUSH Q2H PRN PRN Reason: Pain (severe 7-10) Last Admin: 06/08/17 10:30 Dose: 0.5 mg Dextrose/Sodium Chloride (Dextrose 5%-Normal Saline) 1,000 mls @ 200 mls/hr IV ASDIRECTED [facility] Last Admin: 06/08/17 12:36 Dose: 200 mls/hr Levofloxacin/Dextrose 500 mg/ (Premix) 100 mls @ 100 mls/hr IV Q24H [facility] Lorazepam (Ativan) 0 mg IVPUSH Q4H PRN; Protocol PRN Reason: Agitation Nicotine (Habitrol) 14 mg TRDERM DAILY [facility] Last Admin: 06/08/17 10:35 Dose: 14 mg Ondansetron HCl (Zofran) 4 mg IVPUSH Q4H PRN PRN Reason: Nausea Pantoprazole Sodium (Protonix Iv) 40 mg IVPUSH Q12H [facility] Last Admin: 06/08/17 10:37 Dose: 40 mg Sodium Chloride (Saline Flush) 10 ml FLUSH ASDIRECTED PRN PRN Reason: Keep Vein Open Sodium Chloride (Saline Flush) 2.5 ml FLUSH ASDIRECTED PRN PRN Reason: Keep Vein Open Thiamine HCl (Vitamin B-1) 100 mg IV DAILY [facility] Last Admin: 06/08/17 10:35 Dose: 100 mg Discontinued Medications Hydromorphone HCl (Dilaudid) 0.5 mg IVPUSH ONETIME ONE Stop: 06/07/17 20:30 Last Admin: 06/07/17 20:53 Dose: 0.5 mg Hydromorphone HCl (Dilaudid) Confirm Administered Dose 2 mg .ROUTE .STK-MED ONE Stop: 06/07/17 20:58 Last Admin: 06/07/17 21:55 Dose: Not Given Sodium Chloride (Normal Saline) 1,000 mls @ 999 mls/hr IV STAT ONE Stop: 06/07/17 21:29 Last Admin: 06/07/17 20:50 Dose: 999 mls/hr Sodium Chloride (Normal Saline) 1,000 mls @ 999 mls/hr IV .Bolus ONE Stop: 06/07/17 23:56 Last Admin: 06/07/17 23:27 Dose: 999 mls/hr Levofloxacin/Dextrose 500 mg/ (Premix) 100 mls @ 100 mls/hr IV ONETIME ONE Stop: 06/07/17 23:56 Last Admin: 04/05/18 23:10 Dose: 100 mls/hr Magnesium Sulfate 2 gm/ Premix 50 mls @ 25 mls/hr IV ONETIME ONE Stop: 06/08/17 00:56 Last Admin: 06/08/17 00:22 Dose: 50 mls/hr Iopamidol (Isovue Multipack-370 (76%)) 80 ml IVPUSH ONETIME ONE Stop: 06/07/17 21:57 Last Admin: 06/07/17 22:16 Dose: 80 ml Ondansetron HCl (Zofran) 4 mg IVPUSH ONETIME ONE Stop: 06/07/17 20:30 Last Admin: 06/07/17 20:53 Dose: 4 mg Pantoprazole Sodium (Protonix Iv) 40 mg IVPUSH NOW ONE Stop: 06/07/17 20:30 Last Admin: 06/07/17 20:52 Dose: 40 mg Pantoprazole Sodium (Protonix Iv) 40 mg IVPUSH Q12H [facility] Last Admin: 06/08/17 01:41 Dose: Not Given - Exam Quality Assessment: Supplemental Oxygen General: Alert, Oriented, Mild Distress Lungs: Clear to Auscultation, Normal Respiratory Effort Cardiovascular: Regular Rate, Regular Rhythm GI/Abdominal Exam: Soft, Tender, Abnormal Bowel Sounds Extremities: Normal Inspection, Normal Range of Motion - Problem List Review Problem List Initiated/Reviewed/Updated: Yes - My Orders Last 24 Hours: My Active Orders 06/08/17 09:15 Nicotine [Habitrol] 14 mg TRDERM DAILY - Plan Plan:: 36 yo female admitted secondary to acute on chronic pancreatitis due to alcohol usage, 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 -Patient is nothing by mouth, IV fluids, IV pain medication, IV Zofran, patient to get bowel rest and she'll be reassessed in the afternoon to see if we can progress her diet if she is able to tolerate her pain. -Patient has a suspected UTI based on urine analysis, current coverage is with Levaquin, shall reassess once urine culture returns. -Discussed with the patient's the importance of alcohol use and abuse, explained to her that her acute on chronic pancreatitis will keep on getting inflamed even with a small amount of alcohol usage. Encourage the patient to stop with alcohol abuse. Patient is on [facility] protocols for possible withdrawal symptoms. Anticipated discharge is likely tomorrow provided patient is able to tolerate by mouth, not nauseous, and has good pain control.
--- NOTE | 2017-06-08 14:31 | CT ---
EXAM DATE: 06/07/17 PATIENT'S AGE: 36 Patient: NINA RODARTE Facility: [place], [place] Site . Site : 1980 Study: CT Abdomen/Pelvis W VÍCTOR [id number] 10:22:52 PM Ordering Physician: Jairon Ball Final Report: INDICATION: Abdominal pain with nausea and vomiting. History of pancreatitis. TECHNIQUE: CT abdomen and pelvis acquired with i.v. 80 mL Isovue 370. Coronal and sagittal reformats were obtained. COMPARISON: None FINDINGS: Brick Unloader Tender CT images: Nonobstructive bowel gas pattern. Cholecystectomy surgical clips are noted in the right upper abdomen. Lower chest: Unremarkable. Liver: Unremarkable. Spleen: Unremarkable. Pancreas: Edematous appearance to the pancreatic head with mild degree of adjacent fat stranding and fluid. Coarse calcifications of the pancreatic head on series 201, image 51 with likely adjacent pancreatic cyst or pseudocyst measuring 13 millimeters on series 201, image 50. Gallbladder and bile ducts: Gallbladder surgically absent. Mild degree of intrahepatic and extrahepatic biliary dilatation. Kidneys: Unremarkable. No kidney or ureteral stones and no hydronephrosis seen. Adrenal glands: Unremarkable. GI tract: Unremarkable. The appendix is normal in appearance and size. Vascular: Unremarkable. Lymph nodes: Unremarkable. Miscellaneous: Unremarkable. No pneumoperitoneum is seen. No significant ascites is noted. Pelvic Organs: Right ovarian cyst on series 201, image 106 measures 3.7 centimeters. Bones: Unremarkable for age. IMPRESSION: 1. Acute on chronic pancreatitis. Mild degree of fat stranding and fluid adjacent to the pancreatic head with likely small pancreatic head pseudocyst measuring 13 millimeters on series 201, image 50. 2. If no prior studies, recommend followup imaging to re-evaluate presumed pseudocyst at the pancreatic head versus pancreatic head cystic lesion. 3. Right ovarian cyst with possible fluid-fluid level, measuring 3.7 centimeters. This may represent right ovarian hemorrhagic cyst or possible functional ovarian cyst. If any right pelvic pain or concern for torsion, recommend pelvic ultrasound. Dictated by Matthew Mcdowell MD @ 06/07/2017 10:37:36 PM Dictated by: Matthew Mcdowell MD @ 06/07/2017 22:37:46 ----- ADDENDUM ----- ADDENDUM: 1. Dr. 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 Dictated by Matthew Mcdowell MD @ Jun 07 2017 10:40PM (Electronic Signature) Report Signed by Proxy. MTDD
[2017-06-08] MEDS: Sodium Chloride 0.9% 1,000 ML IV SCH (20:42)
[2017-06-08] MEDS ORDERED: Levofloxacin/Dextrose 5%-Water 500 MG in Premix Bag 1 BAG IV SCH (23:45)
[2017-06-09] MEDS: HYDROmorphone 2 MG/ML SDV IVPUSH PRN ×2 (00:12→09:07)
[2017-06-09] MEDS: Sodium Chloride 0.9% 1,000 ML IV SCH ×2 (04:46→11:32)
[2017-06-09 07:03] LABS: CHLORIDE,CL 109 mmol/L (98-107); SODIUM,NA 137 mmol/L (136-145)
[2017-06-09] MEDS: Nicotine 14 MG/24 Hr Patch TRDERM SCH (09:07)
[2017-06-09] MEDS: Thiamine 200 MG/2 ML MDV IV SCH (09:08)
[2017-06-09] MEDS: Folic Acid 50 MG/10 ML MDV SUBCUT SCH (09:09)
[2017-06-09] MEDS: Pantoprazole 40 MG Vial IVPUSH SCH (09:10)
--- NOTE | 2017-06-09 14:52 | PCM.DCSUM1 ---
Discharge Summary - Discharge Data Discharge Date: 06/09/17 Discharge Disposition: Home, Self-Care 01 Condition: Good - Patient Summary/Data Hospital Course: Admission diagnosis Acute on chronic ETOH pancreatitis. 36 yo female with pmh of chronic pancreatitis who presents with several week history of epigastric abdominal pain that radiates to the back. She was seen in the ED and CT scan of abdomen reported acute on chronic pancreatitis with mild degree of fat stranding and fluid adjacent to the pancreatic head with likely small pancreatic head pseudocyst. Patient admitted to heaving alcohol use this week. She was admitted and treated with IV fluids and bowel rest. She did have improvement in her abdominal pain and was started on an oral diet which she tolerated. She is requesting discharge home. She was given a prescription for levaquin to finish treatment of a UTI that was discovered on urine analysis on admission - Patient Instructions Diet: Usual Diet as Tolerated - Discharge Plan Prescriptions/Med Rec: Levofloxacin [Levaquin] 500 mg PO DAILY #4 tab Home Medications: Home Meds Levofloxacin [Levaquin] 500 mg PO DAILY #4 tab 06/09/17 [Rx] Patient Handouts: Chronic Pancreatitis, Urinary Tract Infection, Adult, Levofloxacin tablets, Acute Pancreatitis Forms: ED Department Discharge Referrals: Elsy Hwang PA [Physician Pure Pak Machine Operator] - 06/15/17 3:15 pm - Patient Data Vitals - Most Recent: Last Vital Signs Temp 36.7 C 06/09/17 11:49 Pulse 83 06/09/17 11:49 Resp 16 06/09/17 11:49 BP 132/84 06/09/17 11:49 Pulse Ox 99 06/09/17 11:49 Weight - Most Recent: 67.4 kg I&O - Last 24 hours: Intake & Output 06/08/17 06/09/17 06/09/17 22:59 06:59 14:59 Intake Total 2729 2331 Output Total 300 1700 Balance 2426 631 Lab Results - Last 24 hrs: Laboratory Results - last 24 hr 06/09/17 06/09/17 Range/Units 05:50 05:50 WBC 4.88 (4.0-11.0) K/uL RBC 3.61 L (4.30-5.90) M/uL Hgb 11.6 L (12.0-16.0) g/dL Hct 34.0 L (36.0-46.0) % MCV 94.2 (80.0-98.0) fL MCH 32.1 H (27.0-32.0) pg MCHC 34.1 (31.0-37.0) g/dL RDW Std Deviation 44.8 (28.0-62.0) fl RDW Coeff of Kristi 13 (11.0-15.0) % Plt Count 231 (150-400) K/uL MPV 9.90 (7.40-12.00) fL Neut % (Auto) 34.9 L (48.0-80.0) % Lymph % (Auto) 51.0 H (16.0-40.0) % [place] % (Auto) 8.4 (0.0-15.0) % Eos % (Auto) 5.3 (0.0-7.0) % Baso % (Auto) 0.4 (0.0-1.5) % Neut # (Auto) 1.7 (1.4-5.7) K/uL Lymph # (Auto) 2.5 H (0.6-2.4) K/uL [place] # (Auto) 0.4 (0.0-0.8) K/uL Eos # (Auto) 0.3 (0.0-0.7) K/uL Baso # (Auto) 0.0 (0.0-0.1) K/uL Nucleated RBC % 0.0 /100WBC Nucleated RBCs # 0 K/uL Sodium 137 (136-145) mmol/L Potassium 3.9 (3.5-5.1) mmol/L Chloride 109 H (98-107) mmol/L Carbon Dioxide 20.8 L (21.0-32.0) mmol/L BUN 3 L (7.0-18.0) mg/dL Creatinine 0.7 (0.6-1.0) mg/dL Est Cr Clr Drug Dosing 81.34 mL/min Estimated GFR (MDRD) > 60.0 ml/min Glucose 88 (74-106) mg/dL Calcium 7.7 L (8.5-10.1) mg/dL Magnesium 1.6 (1.5-2.0) mg/dL Total Bilirubin 0.8 (0.2-1.0) mg/dL AST 61 H (15-37) IU/L ALT 149 H (14-63) IU/L Alkaline Phosphatase 98 (46-116) U/L Total Protein 5.8 L (6.4-8.2) g/dL Albumin 2.8 L (3.4-5.0) g/dL Globulin 3.0 (2.0-3.5) g/dL Albumin/Globulin Ratio 0.9 L (1.3-2.8) ZACH Results - Last 24 hrs: Microbiology 06/07/17 21:25 Urine Culture - Final Urine, Clean Catch MIXED YANNICK >100,000 CFU/ML Med Orders - Current: Current Medications Folic Acid (Folic Acid) 1 mg SUBCUT DAILY [facility] Last Admin: 06/09/17 09:09 Dose: 1 mg Hydromorphone HCl (Dilaudid) 0.5 mg IVPUSH Q2H PRN PRN Reason: Pain (severe 7-10) Last Admin: 06/09/17 09:07 Dose: 0.5 mg Levofloxacin/Dextrose 500 mg/ (Premix) 100 mls @ 100 mls/hr IV Q24H [facility] Last Admin: 06/09/17 00:15 Dose: 100 mls/hr Sodium Chloride (Normal Saline) 1,000 mls @ 150 mls/hr IV ASDIRECTED [facility] Last Admin: 06/09/17 11:32 Dose: 150 mls/hr Lorazepam (Ativan) 0 mg IVPUSH Q4H PRN; Protocol PRN Reason: Agitation Nicotine (Habitrol) 14 mg TRDERM DAILY [facility] Last Admin: 06/09/17 09:07 Dose: 14 mg Ondansetron HCl (Zofran) 4 mg IVPUSH Q4H PRN PRN Reason: Nausea Pantoprazole Sodium (Protonix Iv) 40 mg IVPUSH Q12H [facility] Last Admin: 06/09/17 09:10 Dose: 40 mg Sodium Chloride (Saline Flush) 10 ml FLUSH ASDIRECTED PRN PRN Reason: Keep Vein Open Sodium Chloride (Saline Flush) 2.5 ml FLUSH ASDIRECTED PRN PRN Reason: Keep Vein Open Thiamine HCl (Vitamin B-1) 100 mg IV DAILY [facility] Last Admin: 06/09/17 09:08 Dose: 100 mg Discontinued Medications Hydromorphone HCl (Dilaudid) 0.5 mg IVPUSH ONETIME ONE Stop: 06/07/17 20:30 Last Admin: 06/07/17 20:53 Dose: 0.5 mg Hydromorphone HCl (Dilaudid) Confirm Administered Dose 2 mg .ROUTE .STK-MED ONE Stop: 06/07/17 20:58 Last Admin: 06/07/17 21:55 Dose: Not Given Sodium Chloride (Normal Saline) 1,000 mls @ 999 mls/hr IV STAT ONE Stop: 06/07/17 21:29 Last Admin: 06/07/17 20:50 Dose: 999 mls/hr Sodium Chloride (Normal Saline) 1,000 mls @ 999 mls/hr IV .Bolus ONE Stop: 06/07/17 23:56 Last Admin: 06/07/17 23:27 Dose: 999 mls/hr Levofloxacin/Dextrose 500 mg/ (Premix) 100 mls @ 100 mls/hr IV ONETIME ONE Stop: 06/07/17 23:56 Last Admin: 06/07/17 23:10 Dose: 100 mls/hr Magnesium Sulfate 2 gm/ Premix 50 mls @ 25 mls/hr IV ONETIME ONE Stop: 06/08/17 00:56 Last Admin: 06/08/17 00:22 Dose: 50 mls/hr Dextrose/Sodium Chloride (Dextrose 5%-Normal Saline) 1,000 mls @ 200 mls/hr IV ASDIRECTED [facility] Last Admin: 06/08/17 17:49 Dose: 200 mls/hr Iopamidol (Isovue Multipack-370 (76%)) 80 ml IVPUSH ONETIME ONE Stop: 06/07/17 21:57 Last Admin: 06/07/17 22:16 Dose: 80 ml Ondansetron HCl (Zofran) 4 mg IVPUSH ONETIME ONE Stop: 06/07/17 20:30 Last Admin: 06/07/17 20:53 Dose: 4 mg Pantoprazole Sodium (Protonix Iv) 40 mg IVPUSH NOW ONE Stop: 06/07/17 20:30 Last Admin: 06/07/17 20:52 Dose: 40 mg Pantoprazole Sodium (Protonix Iv) 40 mg IVPUSH Q12H [facility] Last Admin: 06/08/17 01:41 Dose: Not Given
== END 2017-06-09 15:15 | disposition home or self-care (01) | DRG 439 ==
LOC: MW.ED 20:01 → MW.ICU 22:56 → MW.MS 06-08 09:40
PROVIDERS: ADMIT Internal Medicine; ATTEND Internal Medicine
DX: K85.20 Alcohol induced acute pancreatitis without necrosis or infection (principal); N39.0 Urinary tract infection, site not specified; K86.3 Pseudocyst of pancreas; K86.0 Alcohol-induced chronic pancreatitis; F17.200 Nicotine dependence, unspecified, uncomplicated; Z88.0 Allergy status to penicillin; Z88.7 Allergy status to serum and vaccine
CPT/HCPCS: 36415; 74177; 74177-26; 80053; 81001; 81025; 82150; 82962; 83690; 83735; 85025; 87086; 93005; 96361; 96374; 96375; 99284; 99285-25; A9270-GY; C9113; G0480; J1170; J1956; J2405; J3411; J3475; J7040; J7042; Q9967

== ENCOUNTER 2017-07-11 16:52 | Inpatient (IN) | payer MEDICAID, OTHER ==
[2017-07-11] MEDS ORDERED: Sodium Chloride 0.9% 10 ML Syringe FLUSH PRN (16:53)
[2017-07-11] MEDS ORDERED: Sodium Chloride 0.9% 2.5 ML Syringe FLUSH PRN (16:53)
[2017-07-11] MEDS ORDERED: HYDROmorphone 1 MG/ML Syringe IVPUSH ONE (17:03)
[2017-07-11] MEDS ORDERED: Ondansetron 4 MG/2 ML SDV IVPUSH ONE (17:03)
[2017-07-11] MEDS ORDERED: Pantoprazole 40 MG Vial IVPUSH ONE (17:04)
[2017-07-11] MEDS ORDERED: Sodium Chloride 0.9% 1,000 ML IV ONE ×2 (17:04→19:37)
--- NOTE | 2017-07-11 17:23 | EDM.PDOC ---
ED HPI GENERAL MEDICAL PROBLEM - General Chief Complaint: Abdominal Pain Stated Complaint: ABDOMINAL PAIN Time Seen by Provider: 07/11/17 16:53 Source of Information: Reports: Patient, EMS, Old Records History Limitations: Reports: No Limitations - History of Present Illness INITIAL COMMENTS - FREE TEXT/NARRATIVE: HISTORY AND PHYSICAL: []36-year-old female presenting with left upper quadrant pain per EMS History of Present Illness: []Patient relates history of having pancreatitis she was drinking 3 days ago when this pain started . She has had nausea vomiting for the last 2 days. Review of her chart identifies that she was seen in the emergency department and admitted to the hospital on 06/07/2017 with the identical symptoms after she had been drinking. Review of Systems: As per history of present illness and below otherwise all systems reviewed and negative. Past medical history: As per history of present illness and as reviewed below otherwise noncontributory. Surgical history: As per history of present illness and as reviewed below otherwise noncontributory. Social history: No reported history of drug or alcohol abuse. Family history: As per history of present illness and as reviewed below otherwise noncontributory. Physical exam: Alert who is curled in a position moaning of pain. Patient had episode of vomiting on the floor instead of in the bag that was given to her. He continues to ask for pain medication. HEENT: Atraumatic, normocehpalic, pupils reactive, negative for conjunctival pallor or scleral icterus, mucous membranes moist, throat clear, neck supple, nontender, trachea midline. Lungs: Clear to auscultation, breath sounds equal bilaterally, chest non tender. Heart: S1S2, regular, negative for clicks, rubs, or JVD. Abdomen: Soft, distended, tender to light palpation. Negative for masses or hepatossplenmegaly. Negative for costovertebral tenderness. Pelvis: Stable nontender. Genitourinary: Deferred. Rectal: Deferred Extremities: Atraumatic, negative for cords or calf pain. Neurovascular unremarkable. Neuro: Awake, alert, oriented. Cranial nerves II through XII unremarkable. Cerebellum unremarkable. Motor and sensory unremarkable throughout. Exam nonfocal. After IV fluids and medication patient is sleeping. Diagnostics: []CBC CMP amylase lipase UA Therapeutics: []Zofran Protonix IV Normal saline Dilaudid Impression: []Acute pancreatitis Plan: []Admit Definitive disposition and diagnosis as appropriate pending reevaluation and review of above. Onset: Sudden Duration: Day(s): Location: Reports: Abdomen Quality: Reports: Stabbing, Throbbing Severity: Moderate Improves with: Reports: None Worsens with: Reports: None Associated Symptoms: Reports: Nausea/Vomiting uppper abdomen, back Pain Score (Numeric/FACES): 10 - Related Data Allergies Allergy/AdvReac Type Severity Reaction Status Date / Time Penicillins Allergy Anaphylactic Verified 07/11/17 16:56 Shock Pertussis Vaccines Allergy Other Verified 07/11/17 16:56 Home Meds: Home Meds . [No Known Home Meds] 07/11/17 [History] Past Medical History Gastrointestinal History: Reports: Pancreatitis - Past Surgical History GI Surgical History: Reports: Cholecystectomy Female Surgical History: Reports: Tubal Ligation Social & Family History - Family History Family Medical History: Noncontributory - Tobacco Use Years of Tobacco use: 10 Packs/Tins Daily: 0.5 - Caffeine Use Caffeine Use: Reports: None - Recreational Drug Use Recreational Drug Use: Yes Recreational Drug Type: Reports: Marijuana/Hashish Recreational Drug Use Frequency: Weekly Course - Vital Signs Last Recorded V/S: Last Vital Signs Temp 35.7 C 07/11/17 16:53 Pulse 62 07/11/17 16:53 Resp 18 07/11/17 16:53 BP 147/73 H 07/11/17 16:53 Pulse Ox 100 07/11/17 16:53 - Orders/Labs/Meds Orders: Active Orders 24 hr Category Date Time Status EKG Documentation Completion [RC] STAT Care 07/11/17 16:53 Active Abdomen Ltd [US] Routine Exams 07/11/17 17:51 Taken Chest 1V Frontal [CR] Stat Exams 07/11/17 16:55 Taken CULTURE URINE [RM] Stat Lab 07/11/17 16:54 Ordered UA W/MICROSCOPIC [URIN] Stat Lab 07/11/17 16:54 Ordered Sodium Chloride 0.9% [Saline Flush] Med 07/11/17 16:53 Active 10 ml FLUSH ASDIRECTED PRN Sodium Chloride 0.9% [Saline Flush] Med 07/11/17 16:53 Active 2.5 ml FLUSH ASDIRECTED PRN Saline Lock Insert [OM.PC] Stat Oth 07/11/17 16:53 Ordered Medication Orders Sodium Chloride (Saline Flush) 10 ml FLUSH ASDIRECTED PRN PRN Reason: Keep Vein Open Last Admin: 07/11/17 17:16 Dose: 10 ml Sodium Chloride (Saline Flush) 2.5 ml FLUSH ASDIRECTED PRN PRN Reason: Keep Vein Open Last Admin: 07/11/17 17:17 Dose: 2.5 ml Labs: Laboratory Tests 07/11/17 07/11/17 07/11/17 Range/Units 17:05 17:05 17:05 WBC 8.94 (4.0-11.0) K/uL RBC 4.01 L (4.30-5.90) M/uL Hgb 12.9 (12.0-16.0) g/dL Hct 37.1 (36.0-46.0) % MCV 92.5 (80.0-98.0) fL MCH 32.2 H (27.0-32.0) pg MCHC 34.8 (31.0-37.0) g/dL RDW Std Deviation 44.3 (28.0-62.0) fl RDW Coeff of Kristi 13 (11.0-15.0) % Plt Count 297 (150-400) K/uL MPV 10.00 (7.40-12.00) fL Neut % (Auto) 32.9 L (48.0-80.0) % Lymph % (Auto) 55.0 H (16.0-40.0) % [place] % (Auto) 7.0 (0.0-15.0) % Eos % (Auto) 4.9 (0.0-7.0) % Baso % (Auto) 0.2 (0.0-1.5) % Neut # (Auto) 2.9 (1.4-5.7) K/uL Lymph # (Auto) 4.9 H (0.6-2.4) K/uL [place] # (Auto) 0.6 (0.0-0.8) K/uL Eos # (Auto) 0.4 (0.0-0.7) K/uL Baso # (Auto) 0.0 (0.0-0.1) K/uL Nucleated RBC % 0.0 /100WBC Nucleated RBCs # 0 K/uL Sodium 139 (136-145) mmol/L Potassium 3.2 L (3.5-5.1) mmol/L Chloride 103 (98-107) mmol/L Carbon Dioxide 21.7 (21.0-32.0) mmol/L BUN 9 (7.0-18.0) mg/dL Creatinine 0.9 (0.6-1.0) mg/dL Est Cr Clr Drug Dosing 63.26 mL/min Estimated GFR (MDRD) > 60.0 ml/min Glucose 176 H (74-106) mg/dL Calcium 9.7 (8.5-10.1) mg/dL Total Bilirubin 1.6 H (0.2-1.0) mg/dL AST 55 H (15-37) IU/L ALT 169 H (14-63) IU/L Alkaline Phosphatase 162 H (46-116) U/L Total Protein 7.7 (6.4-8.2) g/dL Albumin 4.2 (3.4-5.0) g/dL Globulin 3.5 (2.0-3.5) g/dL Albumin/Globulin Ratio 1.2 L (1.3-2.8) Amylase 401 H (25-115) U/L Lipase 7673 H (73-393) U/L HCG, Quant < 1.0 mIU/mL Meds: Medications Generic Name Dose Route Start Last Admin Trade Name Freq PRN Reason Stop Dose Admin Sodium Chloride 10 ml 07/11/17 16:53 07/11/17 17:16 Saline Flush FLUSH 10 ml ASDIRECTED PRN Administration Keep Vein Open Sodium Chloride 2.5 ml 07/11/17 16:53 07/11/17 17:17 Saline Flush FLUSH 2.5 ml ASDIRECTED PRN Administration Keep Vein Open Discontinued Medications Generic Name Dose Route Start Last Admin Trade Name Freq PRN Reason Stop Dose Admin Hydromorphone HCl 1 mg 07/11/17 17:03 07/11/17 17:20 Dilaudid IVPUSH 07/11/17 17:04 1 mg ONETIME ONE Administration Sodium Chloride 1,000 mls @ 999 mls/hr 07/11/17 17:04 07/11/17 17:17 Normal Saline IV 07/11/17 18:04 999 mls/hr STAT ONE Administration Ondansetron HCl 4 mg 07/11/17 17:03 07/11/17 17:17 Zofran IVPUSH 07/11/17 17:04 4 mg ONETIME ONE Administration Pantoprazole Sodium 80 mg 07/11/17 17:04 07/11/17 17:16 Protonix Iv IVPUSH 07/11/17 17:05 80 mg .BOLUS ONE Administration Departure - Discharge Information Referrals: PCP,None [Primary Care Provider] - Forms: ED Department Discharge - My Orders Last 24 Hours: My Active Orders 07/11/17 16:53 EKG Documentation Completion [RC] STAT Sodium Chloride 0.9% [Saline Flush] 10 ml FLUSH ASDIRECTED PRN Sodium Chloride 0.9% [Saline Flush] 2.5 ml FLUSH ASDIRECTED PRN Saline Lock Insert [OM.PC] Stat 07/11/17 16:54 CULTURE URINE [RM] Stat UA W/MICROSCOPIC [URIN] Stat 07/11/17 16:55 Chest 1V Frontal [CR] Stat - Assessment/Plan Last 24 Hours: My Active Orders 07/11/17 16:53 EKG Documentation Completion [RC] STAT Sodium Chloride 0.9% [Saline Flush] 10 ml FLUSH ASDIRECTED PRN Sodium Chloride 0.9% [Saline Flush] 2.5 ml FLUSH ASDIRECTED PRN Saline Lock Insert [OM.PC] Stat 07/11/17 16:54 CULTURE URINE [RM] Stat UA W/MICROSCOPIC [URIN] Stat 07/11/17 16:55 Chest 1V Frontal [CR] Stat
[2017-07-11 17:41] LABS: CHLORIDE,CL 103 mmol/L (98-107)
[2017-07-11 18:01] LABS: SODIUM,NA 139 mmol/L (136-145)
[2017-07-11] MEDS ORDERED: HYDROmorphone 1 MG/ML Syringe IVPUSH PRN (20:12)
[2017-07-11] MEDS ORDERED: Sodium Chloride 0.9% with KCl 1,000 ML IV SCH (20:15)
[2017-07-11] MEDS ORDERED: LORazepam 2 MG/ML SDV IVPUSH PRN (20:15)
--- NOTE | 2017-07-11 22:50 | PCM.HP ---
H&P History of Present Illness - General Date of Service: 07/11/17 Admit Problem/Dx: Admission Diagnosis/Problem Admission Diagnosis/Problem Pancreatitis Source of Information: Patient - History of Present Illness Initial Comments - Free Text/Narative: 36 year old female with a PMH of pancreatitis and alcohol use, presented to the ED with nausea, vomiting and epigastric pain. Patient has a previous history of alcoholic pancreatitis. Her last admission was 06/17/2017. After discharge she abstained from drinking except when she decided to have a beer about 2 weeks after discharge, however she was not able to drink the entire beer. She reported that she has been under quite a bit of stress. On 07/09/2017, she drank about a pint of hortencia. The following two days she had symptoms of nausea, vomiting and sharp epigastric pain. Her symptoms gradually worsened and she decided to be seen in the ED. In the ED, she was found to have a lipase of 7673. Her WBC count was WNL. Her potassium was low at 3.2. U/S of the abdomen was reported as unremarkable, however official read is pending. The ED physician recommended admission for acute alcoholic pancreatitis with hypokalemia. - Related Data Allergies/Adverse Reactions: Allergies Allergy/AdvReac Type Severity Reaction Status Date / Time Penicillins Allergy Anaphylactic Verified 07/11/17 16:56 Shock Pertussis Vaccines Allergy Other Verified 07/11/17 16:56 Home Medications: Home Meds . [No Known Home Meds] 07/11/17 [History] Past Medical History Gastrointestinal History: Reports: Pancreatitis - Past Surgical History GI Surgical History: Reports: Cholecystectomy Female Surgical History: Reports: Tubal Ligation Social & Family History - Family History Family Medical History: Noncontributory - Tobacco Use Smoking Status *Q: Current Every Day Smoker Years of Tobacco use: 10 Packs/Tins Daily: 0.5 - Caffeine Use Caffeine Use: Reports: Soda - Recreational Drug Use Recreational Drug Use: Yes Recreational Drug Type: Reports: Marijuana/Hashish Other Recreational Drug Type: last use couple of days ago Recreational Drug Use Frequency: Weekly H&P Review of Systems - Review of Systems: Review Of Systems: ROS reveals no pertinent complaints other than HPI. Exam - Exam Exam: See Below - Vital Signs Vital Signs: Last Vital Signs Temp 97.5 F 05/09/18 20:13 Pulse 58 L 07/11/17 20:13 Resp 18 07/11/17 20:13 BP 142/52 H 07/11/17 20:13 Pulse Ox 99 07/11/17 20:13 Weight: 64.5 kg - Exam General: Alert, Cooperative HEENT: Conjunctiva Clear, EOMI Neck: Supple Lungs: Clear to Auscultation, Normal Respiratory Effort. No: Crackles, Wheezing Cardiovascular: Regular Rate, Regular Rhythm. No: Systolic Murmur GI/Abdominal Exam: Normal Bowel Sounds, Soft, No Distention, Tender (epigastric) Extremities: No Pedal Edema Skin: Warm, Dry Neuro Extensive - Mental Status: Alert, Normal Mood/Affect, Normal Cognition, Memory Intact - Patient Data Lab Results Last 24 hrs: Laboratory Results - last 24 hr 07/11/17 07/11/17 07/11/17 Range/Units 17:05 17:05 17:05 WBC 8.94 (4.0-11.0) K/uL RBC 4.01 L (4.30-5.90) M/uL Hgb 12.9 (12.0-16.0) g/dL Hct 37.1 (36.0-46.0) % MCV 92.5 (80.0-98.0) fL MCH 32.2 H (27.0-32.0) pg MCHC 34.8 (31.0-37.0) g/dL RDW Std Deviation 44.3 (28.0-62.0) fl RDW Coeff of Kristi 13 (11.0-15.0) % Plt Count 297 (150-400) K/uL MPV 10.00 (7.40-12.00) fL Neut % (Auto) 32.9 L (48.0-80.0) % Lymph % (Auto) 55.0 H (16.0-40.0) % [place] % (Auto) 7.0 (0.0-15.0) % Eos % (Auto) 4.9 (0.0-7.0) % Baso % (Auto) 0.2 (0.0-1.5) % Neut # (Auto) 2.9 (1.4-5.7) K/uL Lymph # (Auto) 4.9 H (0.6-2.4) K/uL [place] # (Auto) 0.6 (0.0-0.8) K/uL Eos # (Auto) 0.4 (0.0-0.7) K/uL Baso # (Auto) 0.0 (0.0-0.1) K/uL Nucleated RBC % 0.0 /100WBC Nucleated RBCs # 0 K/uL Sodium 139 (136-145) mmol/L Potassium 3.2 L (3.5-5.1) mmol/L Chloride 103 (98-107) mmol/L Carbon Dioxide 21.7 (21.0-32.0) mmol/L BUN 9 (7.0-18.0) mg/dL Creatinine 0.9 (0.6-1.0) mg/dL Est Cr Clr Drug Dosing 63.26 mL/min Estimated GFR (MDRD) > 60.0 ml/min Glucose 176 H (74-106) mg/dL Calcium 9.7 (8.5-10.1) mg/dL Total Bilirubin 1.6 H (0.2-1.0) mg/dL AST 55 H (15-37) IU/L ALT 169 H (14-63) IU/L Alkaline Phosphatase 162 H (46-116) U/L Total Protein 7.7 (6.4-8.2) g/dL Albumin 4.2 (3.4-5.0) g/dL Globulin 3.5 (2.0-3.5) g/dL Albumin/Globulin Ratio 1.2 L (1.3-2.8) Amylase 401 H (25-115) U/L Lipase 7673 H (73-393) U/L HCG, Quant < 1.0 mIU/mL Urine Color Urine Appearance Urine pH (5.0-8.0) Ur Specific [place] (1.001-1.035) Urine Protein (NEGATIVE) mg/dL Urine Glucose (UA) (NEGATIVE) mg/dL Urine Ketones (NEGATIVE) mg/dL Urine Occult Blood (NEGATIVE) Urine Nitrite (NEGATIVE) Urine Bilirubin (NEGATIVE) Urine Urobilinogen (<2.0) EU/dL Ur Leukocyte Esterase (NEGATIVE) Urine RBC (0-2/HPF) Urine WBC (0-5/HPF) Ur Epithelial Cells (NONE-FEW) Urine Bacteria (NEGATIVE) Urine Mucus (NONE-MOD) 05/09/18 Range/Units 19:50 WBC (4.0-11.0) K/uL RBC (4.30-5.90) M/uL Hgb (12.0-16.0) g/dL Hct (36.0-46.0) % MCV (80.0-98.0) fL MCH (27.0-32.0) pg MCHC (31.0-37.0) g/dL RDW Std Deviation (28.0-62.0) fl RDW Coeff of Kristi (11.0-15.0) % Plt Count (150-400) K/uL MPV (7.40-12.00) fL Neut % (Auto) (48.0-80.0) % Lymph % (Auto) (16.0-40.0) % [place] % (Auto) (0.0-15.0) % Eos % (Auto) (0.0-7.0) % Baso % (Auto) (0.0-1.5) % Neut # (Auto) (1.4-5.7) K/uL Lymph # (Auto) (0.6-2.4) K/uL [place] # (Auto) (0.0-0.8) K/uL Eos # (Auto) (0.0-0.7) K/uL Baso # (Auto) (0.0-0.1) K/uL Nucleated RBC % /100WBC Nucleated RBCs # K/uL Sodium (136-145) mmol/L Potassium (3.5-5.1) mmol/L Chloride (98-107) mmol/L Carbon Dioxide (21.0-32.0) mmol/L BUN (7.0-18.0) mg/dL Creatinine (0.6-1.0) mg/dL Est Cr Clr Drug Dosing mL/min Estimated GFR (MDRD) ml/min Glucose (74-106) mg/dL Calcium (8.5-10.1) mg/dL Total Bilirubin (0.2-1.0) mg/dL AST (15-37) IU/L ALT (14-63) IU/L Alkaline Phosphatase (46-116) U/L Total Protein (6.4-8.2) g/dL Albumin (3.4-5.0) g/dL Globulin (2.0-3.5) g/dL Albumin/Globulin Ratio (1.3-2.8) Amylase (25-115) U/L Lipase (73-393) U/L HCG, Quant mIU/mL Urine Color YELLOW Urine Appearance CLEAR Urine pH 5.5 (5.0-8.0) Ur Specific [place] >= 1.030 (1.001-1.035) Urine Protein 30 (NEGATIVE) mg/dL Urine Glucose (UA) NEGATIVE (NEGATIVE) mg/dL Urine Ketones 40 H (NEGATIVE) mg/dL Urine Occult Blood TRACE-INTACT (NEGATIVE) Urine Nitrite NEGATIVE (NEGATIVE) Urine Bilirubin NEGATIVE (NEGATIVE) Urine Urobilinogen 0.2 (<2.0) EU/dL Ur Leukocyte Esterase SMALL (NEGATIVE) Urine RBC 0-1 (0-2/HPF) Urine WBC 10-15 (0-5/HPF) Ur Epithelial Cells MODERATE (NONE-FEW) Urine Bacteria 1+ H (NEGATIVE) Urine Mucus MODERATE (NONE-MOD) Result Diagrams: 07/11/17 17:05 07/11/17 17:05 - Problem List (1) Pancreatitis SNOMED Code(s): 55833055 ICD Code: K85.90 - ACUTE PANCREATITIS WITHOUT NECROSIS OR INFECTION, UNSP Status: Acute Current Visit: No Qualifiers: Chronicity: acute Pancreatitis type: alcohol induced Acute pancreatitis complication: unspecified Qualified Code(s): K85.20 - Alcohol induced acute pancreatitis without necrosis or infection (2) Hypokalemia SNOMED Code(s): 55591180 ICD Code: E87.6 - HYPOKALEMIA Status: Acute Current Visit: Yes Problem List Initiated/Reviewed/Updated: Yes Orders Last 24hrs: Active Orders 24 hr Category Date Time Status Patient Status [ADT] Stat ADT 07/11/17 19:36 Active CIWAA Assessment [RC] Q4H Care 07/11/17 20:13 Active EKG Documentation Completion [RC] STAT Care 07/11/17 16:53 Active Intake and Output [RC] Q12HR Care 07/11/17 20:14 Active Up ad Ela [RC] ASDIRECTED Care 07/11/17 20:14 Active Vital Signs [RC] PER UNIT ROUTINE Care 07/11/17 20:13 Active NPO Now [Nothing per Oral Now Diet] [DIET] Diet 07/12/17 Breakfast Active Abdomen Ltd [US] Routine Exams 07/11/17 17:53 Taken Chest 1V Frontal [CR] Stat Exams 07/11/17 16:55 Taken CBC WITH AUTO DIFF [HEME] Routine Lab 07/12/17 05:00 Ordered COMPREHENSIVE METABOLIC PN,CMP [CHEM] Routine Lab 07/12/17 05:00 Ordered CULTURE URINE [RM] Stat Lab 07/11/17 19:50 Ordered LIPASE [CHEM] Routine Lab 07/12/17 05:00 Ordered LIPID PANEL [CHEM] Routine Lab 07/12/17 05:00 Ordered UA W/MICROSCOPIC [URIN] Stat Lab 07/11/17 19:50 Ordered HYDROmorphone [Dilaudid] Med 07/11/17 20:12 Active 1 mg IVPUSH Q4H PRN LORazepam [Ativan] Med 07/11/17 20:15 Active See Protocol IVPUSH Q4H PRN Lactated Ringers [Ringers, Lactated] 1,000 ml Med 07/11/17 20:15 Active IV ASDIRECTED Ondansetron [Zofran] Med 07/11/17 20:12 Active 4 mg IVPUSH Q4H PRN Pantoprazole [ProTONIX IV] Med 07/12/17 09:00 Active 40 mg IVPUSH DAILY Sodium Chloride 0.9% [Saline Flush] Med 07/11/17 16:53 Active 10 ml FLUSH ASDIRECTED PRN Sodium Chloride 0.9% [Saline Flush] Med 07/11/17 16:53 Active 2.5 ml FLUSH ASDIRECTED PRN Sodium Chloride 0.9% with KCl [Normal Saline with 40 Med 07/11/17 20:15 Active mEq KCl] 1,000 ml IV ASDIRECTED Saline Lock Insert [OM.PC] Stat Oth 07/11/17 16:53 Ordered Medication Orders Hydromorphone HCl (Dilaudid) 1 mg IVPUSH Q4H PRN PRN Reason: Pain Last Admin: 07/11/17 20:57 Dose: 1 mg Lactated Ringer's (Ringers, Lactated) 1,000 mls @ 150 mls/hr IV ASDIRECTED RASHAD Potassium Chloride/Sodium Chloride (Normal Saline With 40 Meq Kcl) 1,000 mls @ 250 mls/hr IV ASDIRECTED RASHAD Stop: 07/12/17 00:14 Last Admin: 07/11/17 21:06 Dose: 250 mls/hr Lorazepam (Ativan) 0 mg IVPUSH Q4H PRN; Protocol PRN Reason: Anxiety Ondansetron HCl (Zofran) 4 mg IVPUSH Q4H PRN PRN Reason: Nausea/Vomiting Pantoprazole Sodium (Protonix Iv) 40 mg IVPUSH DAILY RASHAD Sodium Chloride (Saline Flush) 10 ml FLUSH ASDIRECTED PRN PRN Reason: Keep Vein Open Last Admin: 07/11/17 17:16 Dose: 10 ml Sodium Chloride (Saline Flush) 2.5 ml FLUSH ASDIRECTED PRN PRN Reason: Keep Vein Open Last Admin: 07/11/17 17:17 Dose: 2.5 ml Assessment/Plan Comment:: 1. Acute alcoholic pancreatitis: Patient has a history of alcohol use. She was abstaining from alcohol since her last admission until she came under significant stress. - NPO and LR. - Dilaudid for pain and Zofran for nausea. - CIWA protocol with Ativan. - Lipase and CMP in AM. 2. Hypokalemia: - Replace as needed.
[2017-07-11] MEDS: HYDROmorphone 1 MG/ML Syringe IVPUSH PRN (23:18)
[2017-07-12] MEDS: Nicotine 21 MG/24 Hr Patch TRDERM SCH ×2 (01:20→21:59)
[2017-07-12] MEDS: Lactated Ringers 1,000 ML IV SCH ×2 (01:21→09:15)
[2017-07-12] MEDS: Ondansetron 4 MG/2 ML SDV IVPUSH PRN ×3 (04:24→21:55)
[2017-07-12] MEDS: HYDROmorphone 1 MG/ML Syringe IVPUSH PRN ×5 (04:26→21:55)
[2017-07-12 05:54] LABS: CHLORIDE,CL 108 mmol/L (98-107); SODIUM,NA 141 mmol/L (136-145)
--- NOTE | 2017-07-12 07:18 | PCM.PN ---
- General Info Date of Service: 07/12/17 Admission Dx/Problem (Free Text): Admission Diagnosis/Problem Admission Diagnosis/Problem Pancreatitis Subjective Update: Feeling a littler better this morning, pain is better controlled with more frequent pain medication administration. Did have nausea early this morning, Zofran helped. Denies chest pain or SOB. Abdominal pain is located to epigastric region and radiates to back. Feels bloated. Functional Status: Reports: Pain Controlled, Ambulating, Urinating - Review of Systems General: Reports: Malaise. Denies: Fever HEENT: Reports: No Symptoms. Denies: Headaches, Sore Throat, Visual Changes Pulmonary: Reports: No Symptoms. Denies: Shortness of Breath Cardiovascular: Reports: No Symptoms. Denies: Chest Pain Gastrointestinal: Reports: Abdominal Pain (epigastric with radiation to back), Nausea, Other (bloating). Denies: Vomiting Genitourinary: Reports: No Symptoms. Denies: Dysuria, Frequency, Burning Musculoskeletal: Reports: No Symptoms Skin: Reports: No Symptoms Neurological: Reports: No Symptoms Psychiatric: Reports: No Symptoms - Patient Data Vitals - Most Recent: Last Vital Signs Temp 97.7 F 07/12/17 04:00 Pulse 70 07/12/17 04:00 Resp 19 07/12/17 04:00 BP 163/100 H 07/12/17 04:00 Pulse Ox 97 07/12/17 04:00 Weight - Most Recent: 64.5 kg I&O - Last 24 Hours: Intake & Output 07/11/17 07/12/17 07/12/17 22:59 06:59 14:59 Intake Total 999 0 Output Total 520 Balance 999 -520 Lab Results Last 24 Hours: Laboratory Results - last 24 hr 07/11/17 07/11/17 07/11/17 Range/Units 17:05 17:05 17:05 WBC 8.94 (4.0-11.0) K/uL RBC 4.01 L (4.30-5.90) M/uL Hgb 12.9 (12.0-16.0) g/dL Hct 37.1 (36.0-46.0) % MCV 92.5 (80.0-98.0) fL MCH 32.2 H (27.0-32.0) pg MCHC 34.8 (31.0-37.0) g/dL RDW Std Deviation 44.3 (28.0-62.0) fl RDW Coeff of Kristi 13 (11.0-15.0) % Plt Count 297 (150-400) K/uL MPV 10.00 (7.40-12.00) fL Neut % (Auto) 32.9 L (48.0-80.0) % Lymph % (Auto) 55.0 H (16.0-40.0) % [place] % (Auto) 7.0 (0.0-15.0) % Eos % (Auto) 4.9 (0.0-7.0) % Baso % (Auto) 0.2 (0.0-1.5) % Neut # (Auto) 2.9 (1.4-5.7) K/uL Lymph # (Auto) 4.9 H (0.6-2.4) K/uL [place] # (Auto) 0.6 (0.0-0.8) K/uL Eos # (Auto) 0.4 (0.0-0.7) K/uL Baso # (Auto) 0.0 (0.0-0.1) K/uL Nucleated RBC % 0.0 /100WBC Nucleated RBCs # 0 K/uL Sodium 139 (136-145) mmol/L Potassium 3.2 L (3.5-5.1) mmol/L Chloride 103 (98-107) mmol/L Carbon Dioxide 21.7 (21.0-32.0) mmol/L BUN 9 (7.0-18.0) mg/dL Creatinine 0.9 (0.6-1.0) mg/dL Est Cr Clr Drug Dosing 63.26 mL/min Estimated GFR (MDRD) > 60.0 ml/min Glucose 176 H (74-106) mg/dL Calcium 9.7 (8.5-10.1) mg/dL Total Bilirubin 1.6 H (0.2-1.0) mg/dL AST 55 H (15-37) IU/L ALT 169 H (14-63) IU/L Alkaline Phosphatase 162 H (46-116) U/L Total Protein 7.7 (6.4-8.2) g/dL Albumin 4.2 (3.4-5.0) g/dL Globulin 3.5 (2.0-3.5) g/dL Albumin/Globulin Ratio 1.2 L (1.3-2.8) Triglycerides (0-200) mg/dL Cholesterol (50-200) mg/dL LDL Cholesterol, Calc (60-180) mg/dL VLDL Cholesterol (5-55) mg/dL HDL Cholesterol (40-60) mg/dL Cholesterol/HDL Ratio (3.3-6.0) Amylase 401 H (25-115) U/L Lipase 7673 H (73-393) U/L HCG, Quant < 1.0 mIU/mL Urine Color Urine Appearance Urine pH (5.0-8.0) Ur Specific [place] (1.001-1.035) Urine Protein (NEGATIVE) mg/dL Urine Glucose (UA) (NEGATIVE) mg/dL Urine Ketones (NEGATIVE) mg/dL Urine Occult Blood (NEGATIVE) Urine Nitrite (NEGATIVE) Urine Bilirubin (NEGATIVE) Urine Urobilinogen (<2.0) EU/dL Ur Leukocyte Esterase (NEGATIVE) Urine RBC (0-2/HPF) Urine WBC (0-5/HPF) Ur Epithelial Cells (NONE-FEW) Urine Bacteria (NEGATIVE) Urine Mucus (NONE-MOD) 07/11/17 07/12/17 07/12/17 Range/Units 19:50 05:05 05:05 WBC 8.46 (4.0-11.0) K/uL RBC 3.59 L (4.30-5.90) M/uL Hgb 11.5 L (12.0-16.0) g/dL Hct 33.4 L (36.0-46.0) % MCV 93.0 (80.0-98.0) fL MCH 32.0 (27.0-32.0) pg MCHC 34.4 (31.0-37.0) g/dL RDW Std Deviation 45.0 (28.0-62.0) fl RDW Coeff of Kristi 13 (11.0-15.0) % Plt Count 223 (150-400) K/uL MPV 10.00 (7.40-12.00) fL Neut % (Auto) 80.3 H (48.0-80.0) % Lymph % (Auto) 14.4 L (16.0-40.0) % [place] % (Auto) 5.2 (0.0-15.0) % Eos % (Auto) 0.1 (0.0-7.0) % Baso % (Auto) 0.0 (0.0-1.5) % Neut # (Auto) 6.8 H (1.4-5.7) K/uL Lymph # (Auto) 1.2 (0.6-2.4) K/uL [place] # (Auto) 0.4 (0.0-0.8) K/uL Eos # (Auto) 0.0 (0.0-0.7) K/uL Baso # (Auto) 0.0 (0.0-0.1) K/uL Nucleated RBC % 0.0 /100WBC Nucleated RBCs # 0 K/uL Sodium 141 (136-145) mmol/L Potassium 3.9 (3.5-5.1) mmol/L Chloride 108 H (98-107) mmol/L Carbon Dioxide 21.8 (21.0-32.0) mmol/L BUN 5 L (7.0-18.0) mg/dL Creatinine 0.7 (0.6-1.0) mg/dL Est Cr Clr Drug Dosing 81.34 mL/min Estimated GFR (MDRD) > 60.0 ml/min Glucose 133 H (74-106) mg/dL Calcium 8.1 L (8.5-10.1) mg/dL Total Bilirubin 1.2 H (0.2-1.0) mg/dL AST 38 H (15-37) IU/L ALT 127 H (14-63) IU/L Alkaline Phosphatase 122 H (46-116) U/L Total Protein 6.7 (6.4-8.2) g/dL Albumin 3.6 (3.4-5.0) g/dL Globulin 3.1 (2.0-3.5) g/dL Albumin/Globulin Ratio 1.2 L (1.3-2.8) Triglycerides 42 (0-200) mg/dL Cholesterol 160 (50-200) mg/dL LDL Cholesterol, Calc 98 (60-180) mg/dL VLDL Cholesterol 8 (5-55) mg/dL HDL Cholesterol 54 (40-60) mg/dL Cholesterol/HDL Ratio 3.0 L (3.3-6.0) Amylase (25-115) U/L Lipase 4899 H (73-393) U/L HCG, Quant mIU/mL Urine Color YELLOW Urine Appearance CLEAR Urine pH 5.5 (5.0-8.0) Ur Specific [place] >= 1.030 (1.001-1.035) Urine Protein 30 (NEGATIVE) mg/dL Urine Glucose (UA) NEGATIVE (NEGATIVE) mg/dL Urine Ketones 40 H (NEGATIVE) mg/dL Urine Occult Blood TRACE-INTACT (NEGATIVE) Urine Nitrite NEGATIVE (NEGATIVE) Urine Bilirubin NEGATIVE (NEGATIVE) Urine Urobilinogen 0.2 (<2.0) EU/dL Ur Leukocyte Esterase SMALL (NEGATIVE) Urine RBC 0-1 (0-2/HPF) Urine WBC 10-15 (0-5/HPF) Ur Epithelial Cells MODERATE (NONE-FEW) Urine Bacteria 1+ H (NEGATIVE) Urine Mucus MODERATE (NONE-MOD) Med Orders - Current: Current Medications Hydromorphone HCl (Dilaudid) 1 mg IVPUSH Q2H PRN PRN Reason: Pain Last Admin: 07/12/17 04:26 Dose: 1 mg Lactated Ringer's (Ringers, Lactated) 1,000 mls @ 150 mls/hr IV ASDIRECTED [facility] Last Admin: 07/12/17 01:21 Dose: 150 mls/hr Lorazepam (Ativan) 0 mg IVPUSH Q4H PRN; Protocol PRN Reason: Anxiety Nicotine (Habitrol) 21 mg TRDERM DAILY@2100 [facility] Last Admin: 07/12/17 01:20 Dose: 21 mg Ondansetron HCl (Zofran) 4 mg IVPUSH Q4H PRN PRN Reason: Nausea/Vomiting Last Admin: 07/12/17 04:24 Dose: 4 mg Pantoprazole Sodium (Protonix Iv) 40 mg IVPUSH DAILY [facility] Sodium Chloride (Saline Flush) 10 ml FLUSH ASDIRECTED PRN PRN Reason: Keep Vein Open Last Admin: 07/11/17 17:16 Dose: 10 ml Sodium Chloride (Saline Flush) 2.5 ml FLUSH ASDIRECTED PRN PRN Reason: Keep Vein Open Last Admin: 07/11/17 17:17 Dose: 2.5 ml Discontinued Medications Hydromorphone HCl (Dilaudid) 1 mg IVPUSH ONETIME ONE Stop: 07/11/17 17:04 Last Admin: 07/11/17 17:20 Dose: 1 mg Hydromorphone HCl (Dilaudid) 1 mg IVPUSH Q4H PRN PRN Reason: Pain Last Admin: 07/11/17 20:57 Dose: 1 mg Sodium Chloride (Normal Saline) 1,000 mls @ 999 mls/hr IV STAT ONE Stop: 07/11/17 18:04 Last Admin: 07/11/17 17:17 Dose: 999 mls/hr Sodium Chloride (Normal Saline) 1,000 mls @ 999 mls/hr IV STAT ONE Stop: 07/11/17 20:37 Last Admin: 07/11/17 19:56 Dose: 999 mls/hr Potassium Chloride/Sodium Chloride (Normal Saline With 40 Meq Kcl) 1,000 mls @ 250 mls/hr IV ASDIRECTED RASHAD Stop: 07/12/17 00:14 Last Admin: 07/11/17 21:06 Dose: 250 mls/hr Ondansetron HCl (Zofran) 4 mg IVPUSH ONETIME ONE Stop: 07/11/17 17:04 Last Admin: 07/11/17 17:17 Dose: 4 mg Pantoprazole Sodium (Protonix Iv) 80 mg IVPUSH .BOLUS ONE Stop: 07/11/17 17:05 Last Admin: 07/11/17 17:16 Dose: 80 mg - Exam General: Alert, Oriented, Cooperative, No Acute Distress Neck: Supple Lungs: Clear to Auscultation, Normal Respiratory Effort Cardiovascular: Regular Rate, Regular Rhythm GI/Abdominal Exam: Normal Bowel Sounds, Soft, Distended, Tender (mainly to epigastric region, but is slightly tender all over abdomen. ). No: Guarding, Rigid Extremities: Normal Inspection, Normal Range of Motion, Non-Tender, No Pedal Edema, Normal Capillary Refill Neurological: No New Focal Deficit Psy/Mental Status: Alert, Normal Affect, Normal Mood - Problem List & Annotations (1) Pancreatitis SNOMED Code(s): 87930741 Code(s): K85.90 - ACUTE PANCREATITIS WITHOUT NECROSIS OR INFECTION, UNSP Status: Acute Current Visit: No Qualifiers: Chronicity: acute Pancreatitis type: alcohol induced Acute pancreatitis complication: no infection or necrosis Qualified Code(s): K85.20 - Alcohol induced acute pancreatitis without necrosis or infection (2) Transaminitis SNOMED Code(s): 116807887, 577400895 Code(s): R74.0 - NONSPEC ELEV OF LEVELS OF TRANSAMNS & LACTIC ACID DEHYDRGNSE Status: Acute Current Visit: Yes (3) Hypokalemia SNOMED Code(s): 33077079 Code(s): E87.6 - HYPOKALEMIA Status: Acute Current Visit: Yes - Problem List Review Problem List Initiated/Reviewed/Updated: Yes - Plan Plan:: This 36 year old female admitted with acute on chronic alcoholic pancreatitis 1. Acute on chronic alcoholic pancreatitis: Improving today. Continues to use alcohol. Discussed with her today the need to abstain completely from alcohol. Will continue bowel rest. Will give 1 L bolus this morning of LR and then continue LR 150 ml/hr. Continue Dilaudid for pain and Zofran for nausea. CIWA protocol with Ativan. Lipase improved to 4899 today, LFTs improved as well. Triglycerides WNL. Will obtain CT of abdomen/pelvis to evaluate previous pancreatic pseudocyst seen 06/07/2017. 2. Hypokalemia: Resolved. Will continue to monitor. Checked Mag, 1.7 and Phos 2.7 3. Alcohol abuse: Supplement with thiamine and folic acid daily. CIWA protocol. Protonix IV daily. Again discussed at length the importance of sobriety. She verbalized understanding. Continues to have depression. After last admission she did see PERLA Ruiz in our clinic, who encouraged sobriety as well as set her up with counseling for depression, started Zoloft. Patient reports she never picked up the prescription and has not seen any counseling. Marisol does need assistance with depression to limit self medicating with alcohol, which she agrees with. Will provide patient with [facility], AA meeting lists and [employer] counseling resources to assist in abstaining from alcohol. VTE prophylaxis: SCDs and ambulationg Dispo: 2-3 days pending continued improvement.
[2017-07-12] MEDS ORDERED: Lactated Ringers 1,000 ML IV ONE (08:08)
[2017-07-12] MEDS: Pantoprazole 40 MG Vial IVPUSH SCH (08:22)
[2017-07-12] MEDS: Thiamine 200 MG/2 ML MDV IV SCH (08:27)
[2017-07-12] MEDS: Folic Acid 50 MG/10 ML MDV SUBCUT SCH (08:34)
[2017-07-12] MEDS ORDERED: Iopamidol 755 MG/ML 200 ML Multipack Bottle IVPUSH ONE (12:04)
--- NOTE | 2017-07-12 12:24 | CT ---
CT of the abdomen and pelvis with contrast. HISTORY: Pancreatitis TECHNIQUE: Axial CT images were obtained of the abdomen and pelvis following administration of 78 mL of Isovue-370 in the right antecubital fossa without complication. Coronal and sagittal reconstructio ns obtained. FINDINGS: The lung bases are clear, no pleural effusion. The liver, spleen, and adrenal glands appear normal. Prominent peripancreatic stranding and nonorgani zed fluid is noted. Small 8 mm cystic collection within the uncinate process. Calcifications are also noted within the posterior uncinate process. No bulky retroperitoneal lymphadenopathy. The kidneys enhance and function symmetrically without evidence of obstructive uropathy. The large and small bowel are normal in caliber without evidence of obstruction. No focal pericolonic inflammation or stranding. The appendix is normal. No pelvic lymphadenopathy. Trace reflux fluid. Th e uterus is unremarkable. No suspicious osseous abnormalities identified. Bone island within the left ilium. IMPRESSION: 1. Peripancreatic stranding and fluid consistent with acute pancreatitis. 2. Decreasing 8 mm fluid collection within the uncinate process of the pancreas.
--- NOTE | 2017-07-12 15:28 | CR ---
EXAM DATE: 07/11/17 PATIENT'S AGE: 36 Patient: NINA RODARTE Facility: [place], [place] Site . Site : 1980 Study: XRay Chest [id number]/9/2018 5:52:30 PM Ordering Physician: Doctor Mendoza Final Report: INDICATION: Epigastric pain. TECHNIQUE: Chest radiograph 1 view COMPARISON: None FINDINGS: Cardiovascular and mediastinum: The heart silhouette is normal in size and morphology. The mediastinum is normal in appearance. Lungs and pleural spaces: Both lungs are unremarkable in appearance. No sign of pleural effusion seen. No pneumothorax is identified. Bones and soft tissues: No significant findings. Cholecystectomy surgical clips are noted in the right upper abdomen. IMPRESSION: 1. No acute cardiopulmonary disease is seen. Dictated by Matthew Mcdowell MD @ 07/11/2017 6:19:54 PM Dictated by: Matthew Mcdowell MD @ 07/11/2017 18:20:02 (Electronic Signature) Report Signed by Proxy. FARSHAD
--- NOTE | 2017-07-12 15:29 | US ---
EXAM DATE: 07/11/17 PATIENT'S AGE: 36 Patient: NINA GOODMAN Facility: [place], [place] Site . Site : 1980 Study: US Abdomen [id number]/9/2018 6:06:39 PM Ordering Physician: Doctor Mendoza Final Report: INDICATION: Epigastric pain. History of pancreatitis. TECHNIQUE: Ultrasound abdomen limited. Sonographic images of the right upper quadrant were obtained using goodman-scale and color Doppler images. COMPARISON: No prior ultrasound. CT study dated 06/07/2017. FINDINGS: Liver: Normal in size and echotexture. No masses. No intrahepatic biliary dilatation. Gallbladder: Gallbladder surgically absent. Common bile duct: 1-2 mm. Pancreas: Unremarkable. Right kidney: 10.1 cm. Normal echotexture and cortex. No masses, stones, or hydronephrosis. Vasculature: Not evaluated. IMPRESSION: 1. Surgically absent gallbladder. No abnormal biliary dilatation. 2. Sonographically normal pancreas. No peripancreatic fluid identified. Dictated by Matthew Mcdowell MD @ 07/11/2017 7:13:32 PM Dictated by: Matthew Mcdowell MD @ 07/11/2017 19:13:37 (Electronic Signature) Report Signed by Proxy. FARSHAD
[2017-07-13] MEDS: Lactated Ringers 1,000 ML IV SCH ×4 (00:57→21:12)
[2017-07-13] MEDS: HYDROmorphone 1 MG/ML Syringe IVPUSH PRN ×4 (03:03→21:05)
[2017-07-13 05:54] LABS: CHLORIDE,CL 102 mmol/L (98-107); SODIUM,NA 136 mmol/L (136-145)
--- NOTE | 2017-07-13 08:01 | PCM.PN ---
- General Info Date of Service: 07/13/17 Admission Dx/Problem (Free Text): Admission Diagnosis/Problem Admission Diagnosis/Problem Pancreatitis Subjective Update: Continues to have nausea and abdominal pain. Does not feel ready for trying a diet yet. Abdominal pain is about the same as yesterday. She has been up moving. No chest pain or SOB. Functional Status: Reports: Pain Controlled, Ambulating, Urinating - Review of Systems General: Reports: No Symptoms. Denies: Fever, Weakness, Fatigue, Malaise HEENT: Reports: No Symptoms. Denies: Headaches, Sore Throat, Rhinitis, Visual Changes Pulmonary: Reports: No Symptoms. Denies: Shortness of Breath, Cough, Sputum Cardiovascular: Reports: No Symptoms. Denies: Chest Pain, Palpitations, Orthopnea, Edema Gastrointestinal: Reports: Abdominal Pain (epigastric), Nausea, Vomiting Genitourinary: Reports: No Symptoms. Denies: Dysuria, Frequency, Burning Musculoskeletal: Reports: No Symptoms Skin: Reports: No Symptoms Neurological: Reports: No Symptoms Psychiatric: Reports: No Symptoms - Patient Data Vitals - Most Recent: Last Vital Signs Temp 99.2 F 07/13/17 06:30 Pulse 86 07/13/17 06:30 Resp 19 07/13/17 06:30 BP 122/80 07/13/17 06:30 Pulse Ox 96 07/13/17 06:30 Weight - Most Recent: 64.5 kg I&O - Last 24 Hours: Intake & Output 07/12/17 07/13/17 07/13/17 22:59 06:59 14:59 Intake Total 999 Output Total 100 Balance 899 Lab Results Last 24 Hours: Laboratory Results - last 24 hr 07/12/17 07/13/17 07/13/17 Range/Units 05:28 05:10 05:10 WBC 9.43 (4.0-11.0) K/uL RBC 3.50 L (4.30-5.90) M/uL Hgb 11.4 L (12.0-16.0) g/dL Hct 32.6 L (36.0-46.0) % MCV 93.1 (80.0-98.0) fL MCH 32.6 H (27.0-32.0) pg MCHC 35.0 (31.0-37.0) g/dL RDW Std Deviation 43.8 (28.0-62.0) fl RDW Coeff of Kristi 13 (11.0-15.0) % Plt Count 192 (150-400) K/uL MPV 9.90 (7.40-12.00) fL Neut % (Auto) 78.0 (48.0-80.0) % Lymph % (Auto) 15.6 L (16.0-40.0) % [place] % (Auto) 5.8 (0.0-15.0) % Eos % (Auto) 0.5 (0.0-7.0) % Baso % (Auto) 0.1 (0.0-1.5) % Neut # (Auto) 7.4 H (1.4-5.7) K/uL Lymph # (Auto) 1.5 (0.6-2.4) K/uL [place] # (Auto) 0.6 (0.0-0.8) K/uL Eos # (Auto) 0.1 (0.0-0.7) K/uL Baso # (Auto) 0.0 (0.0-0.1) K/uL Nucleated RBC % 0.0 /100WBC Nucleated RBCs # 0 K/uL Sodium 136 (136-145) mmol/L Potassium 3.4 L (3.5-5.1) mmol/L Chloride 102 (98-107) mmol/L Carbon Dioxide 26.0 (21.0-32.0) mmol/L BUN 2 L (7.0-18.0) mg/dL Creatinine 0.7 (0.6-1.0) mg/dL Est Cr Clr Drug Dosing 81.34 mL/min Estimated GFR (MDRD) > 60.0 ml/min Glucose 86 (74-106) mg/dL Calcium 8.4 L (8.5-10.1) mg/dL Phosphorus 2.7 (2.6-4.7) mg/dL Magnesium 1.7 1.5 (1.5-2.0) mg/dL Total Bilirubin 1.5 H (0.2-1.0) mg/dL AST 26 (15-37) IU/L ALT 84 H (14-63) IU/L Alkaline Phosphatase 94 (46-116) U/L Total Protein 6.1 L (6.4-8.2) g/dL Albumin 3.1 L (3.4-5.0) g/dL Globulin 3.0 (2.0-3.5) g/dL Albumin/Globulin Ratio 1.0 L (1.3-2.8) Med Orders - Current: Current Medications Folic Acid (Folic Acid) 1 mg SUBCUT DAILY COUNTS INCLUDE 234 BEDS AT THE [facility] Last Admin: 07/12/17 08:34 Dose: 1 mg Hydromorphone HCl (Dilaudid) 1 mg IVPUSH Q2H PRN PRN Reason: Pain Last Admin: 07/13/17 03:03 Dose: 1 mg Lactated Ringer's (Ringers, Lactated) 1,000 mls @ 150 mls/hr IV ASDIRECTED COUNTS INCLUDE 234 BEDS AT THE [facility] Last Admin: 07/13/17 07:41 Dose: 150 mls/hr Lorazepam (Ativan) 0 mg IVPUSH Q4H PRN; Protocol PRN Reason: Anxiety Nicotine (Habitrol) 21 mg TRDERM DAILY@2100 COUNTS INCLUDE 234 BEDS AT THE [facility] Last Admin: 07/12/17 21:59 Dose: 21 mg Ondansetron HCl (Zofran) 4 mg IVPUSH Q4H PRN PRN Reason: Nausea/Vomiting Last Admin: 07/12/17 21:55 Dose: 4 mg Pantoprazole Sodium (Protonix Iv) 40 mg IVPUSH DAILY COUNTS INCLUDE 234 BEDS AT THE [facility] Last Admin: 07/12/17 08:22 Dose: 40 mg Sodium Chloride (Saline Flush) 10 ml FLUSH ASDIRECTED PRN PRN Reason: Keep Vein Open Last Admin: 07/11/17 17:16 Dose: 10 ml Sodium Chloride (Saline Flush) 2.5 ml FLUSH ASDIRECTED PRN PRN Reason: Keep Vein Open Last Admin: 07/11/17 17:17 Dose: 2.5 ml Thiamine HCl (Vitamin B-1) 100 mg IV DAILY COUNTS INCLUDE 234 BEDS AT THE [facility] Last Admin: 07/12/17 08:27 Dose: 100 mg Discontinued Medications Hydromorphone HCl (Dilaudid) 1 mg IVPUSH ONETIME ONE Stop: 07/11/17 17:04 Last Admin: 07/11/17 17:20 Dose: 1 mg Hydromorphone HCl (Dilaudid) 1 mg IVPUSH Q4H PRN PRN Reason: Pain Last Admin: 07/11/17 20:57 Dose: 1 mg Sodium Chloride (Normal Saline) 1,000 mls @ 999 mls/hr IV STAT ONE Stop: 07/11/17 18:04 Last Admin: 07/11/17 17:17 Dose: 999 mls/hr Sodium Chloride (Normal Saline) 1,000 mls @ 999 mls/hr IV STAT ONE Stop: 07/11/17 20:37 Last Admin: 07/11/17 19:56 Dose: 999 mls/hr Potassium Chloride/Sodium Chloride (Normal Saline With 40 Meq Kcl) 1,000 mls @ 250 mls/hr IV ASDIRECTED RASHAD Stop: 07/12/17 00:14 Last Admin: 07/11/17 21:06 Dose: 250 mls/hr Lactated Ringer's (Ringers, Lactated) 1,000 mls @ 999 mls/hr IV .BOLUS ONE Stop: 07/12/17 09:08 Last Admin: 07/12/17 08:19 Dose: 999 mls/hr Iopamidol (Isovue Multipack-370 (76%)) 78 ml IVPUSH ONETIME ONE Stop: 07/12/17 12:05 Last Admin: 07/12/17 12:04 Dose: 78 ml Ondansetron HCl (Zofran) 4 mg IVPUSH ONETIME ONE Stop: 07/11/17 17:04 Last Admin: 07/11/17 17:17 Dose: 4 mg Pantoprazole Sodium (Protonix Iv) 80 mg IVPUSH .BOLUS ONE Stop: 07/11/17 17:05 Last Admin: 07/11/17 17:16 Dose: 80 mg - Exam General: Alert, Oriented, Cooperative, No Acute Distress Neck: Supple Lungs: Clear to Auscultation, Normal Respiratory Effort Cardiovascular: Regular Rate, Regular Rhythm GI/Abdominal Exam: Normal Bowel Sounds, Soft, Distended, Tender (Epigastric region and slightly lower than this. remains about the same). No: Guarding Extremities: Normal Inspection, Normal Range of Motion, Non-Tender, No Pedal Edema, Normal Capillary Refill Neurological: No New Focal Deficit Psy/Mental Status: Alert, Normal Affect, Normal Mood - Problem List & Annotations (1) Pancreatitis SNOMED Code(s): 37103599 Code(s): K85.90 - ACUTE PANCREATITIS WITHOUT NECROSIS OR INFECTION, UNSP Status: Acute Current Visit: No Qualifiers: Chronicity: acute Pancreatitis type: alcohol induced Acute pancreatitis complication: no infection or necrosis Qualified Code(s): K85.20 - Alcohol induced acute pancreatitis without necrosis or infection (2) Transaminitis SNOMED Code(s): 632190217, 286677174 Code(s): R74.0 - NONSPEC ELEV OF LEVELS OF TRANSAMNS & LACTIC ACID DEHYDRGNSE Status: Acute Current Visit: Yes (3) Hypokalemia SNOMED Code(s): 19346159 Code(s): E87.6 - HYPOKALEMIA Status: Acute Current Visit: Yes - Problem List Review Problem List Initiated/Reviewed/Updated: Yes - My Orders Last 24 Hours: My Active Orders 07/12/17 09:00 Folic Acid 1 mg SUBCUT DAILY Thiamine [Vitamin B-1] 100 mg IV DAILY 07/14/17 05:11 CBC WITH AUTO DIFF [HEME] AM COMPREHENSIVE METABOLIC PN,CMP [CHEM] AM MAGNESIUM [CHEM] AM 07/15/17 05:11 CBC WITH AUTO DIFF [HEME] AM COMPREHENSIVE METABOLIC PN,CMP [CHEM] AM MAGNESIUM [CHEM] AM - Plan Plan:: This 36 year old female admitted with acute on chronic alcoholic pancreatitis 1. Acute on chronic alcoholic pancreatitis: remains about the same today, using Dilaudid every 4-5 hours for pain. Still having some nausea. does not feel hungry. Continue LR 150 ml/hr. Continue Dilaudid for pain and Zofran for nausea. CIWA protocol with Ativan. LFTs improving. CT of abdomen/pelvis repeated yesterday, revealed peripancreatitc stranding and fluid consisted with acute pancreatitis, decreasing 8 mm fluid collection within the uncinate process of the pancreas. patient aware of findings. 2. Hypokalemia: Will continue to monitor. Checked Mag, 1.5 will give 2 gm IV today. Potassium 3.4 will monitor. 3. Alcohol abuse: Supplement with thiamine and folic acid daily. CIWA protocol. Protonix IV daily. VTE prophylaxis: SCDs and ambulation Dispo: 2-3 days pending continued improvement.
[2017-07-13] MEDS: Thiamine 200 MG/2 ML MDV IV SCH (09:21)
[2017-07-13] MEDS: Pantoprazole 40 MG Vial IVPUSH SCH (09:26)
[2017-07-13] MEDS: Folic Acid 50 MG/10 ML MDV SUBCUT SCH (09:29)
[2017-07-13] MEDS ORDERED: Magnesium Sulfate/Water 2 GM in Premix Bag 1 BAG IV ONE (09:51)
[2017-07-13] MEDS: Ondansetron 4 MG/2 ML SDV IVPUSH PRN ×2 (16:21→21:05)
[2017-07-13] MEDS: Nicotine 21 MG/24 Hr Patch TRDERM SCH (21:06)
[2017-07-14] MEDS: HYDROmorphone 1 MG/ML Syringe IVPUSH PRN ×7 (00:10→22:12)
[2017-07-14] MEDS: Lactated Ringers 1,000 ML IV SCH (04:10)
[2017-07-14 06:58] LABS: CHLORIDE,CL 101 mmol/L (98-107); SODIUM,NA 134 mmol/L (136-145)
[2017-07-14] MEDS: Folic Acid 50 MG/10 ML MDV SUBCUT SCH (08:56)
[2017-07-14] MEDS: Thiamine 200 MG/2 ML MDV IV SCH (08:58)
[2017-07-14] MEDS: Pantoprazole 40 MG Vial IVPUSH SCH (09:01)
[2017-07-14] MEDS: Dextrose 5%-0.45% NaCl 1,000 ML IV SCH ×2 (10:55→19:38)
[2017-07-14] MEDS ORDERED: Potassium Chloride 20 MEQ Tab.ER PO ONE (11:16)
--- NOTE | 2017-07-14 11:52 | PCM.PN ---
- General Info Date of Service: 07/14/17 Admission Dx/Problem (Free Text): Admission Diagnosis/Problem Admission Diagnosis/Problem Pancreatitis Subjective Update: Patient doing better today. No nausea or vomiting since last night. Abdominal pain improving. She is requesting to eat. No BM since admission. Functional Status: Reports: Pain Controlled, Ambulating, Urinating - Review of Systems General: Reports: No Symptoms HEENT: Reports: No Symptoms Pulmonary: Reports: No Symptoms Cardiovascular: Reports: No Symptoms Gastrointestinal: Reports: Abdominal Pain, Constipation Genitourinary: Reports: No Symptoms Musculoskeletal: Reports: No Symptoms Skin: Reports: No Symptoms Neurological: Reports: No Symptoms Psychiatric: Reports: No Symptoms - Patient Data Vitals - Most Recent: Last Vital Signs Temp 36.5 C 07/14/17 08:00 Pulse 91 07/14/17 08:00 Resp 18 07/14/17 08:00 BP 141/82 H 07/14/17 08:00 Pulse Ox 99 07/14/17 08:00 Weight - Most Recent: 64.5 kg I&O - Last 24 Hours: Intake & Output 07/13/17 07/14/17 07/14/17 22:59 06:59 14:59 Intake Total 2626 20 1000 Output Total 20 500 Balance 2606 -480 1000 Lab Results Last 24 Hours: Laboratory Results - last 24 hr 07/14/17 07/14/17 Range/Units 06:05 06:05 WBC 10.40 (4.0-11.0) K/uL RBC 3.47 L (4.30-5.90) M/uL Hgb 11.2 L (12.0-16.0) g/dL Hct 32.1 L (36.0-46.0) % MCV 92.5 (80.0-98.0) fL MCH 32.3 H (27.0-32.0) pg MCHC 34.9 (31.0-37.0) g/dL RDW Std Deviation 43.0 (28.0-62.0) fl RDW Coeff of Kristi 13 (11.0-15.0) % Plt Count 186 (150-400) K/uL MPV 10.40 (7.40-12.00) fL Neut % (Auto) 75.1 (48.0-80.0) % Lymph % (Auto) 15.7 L (16.0-40.0) % [place] % (Auto) 7.7 (0.0-15.0) % Eos % (Auto) 1.3 (0.0-7.0) % Baso % (Auto) 0.2 (0.0-1.5) % Neut # (Auto) 7.8 H (1.4-5.7) K/uL Lymph # (Auto) 1.6 (0.6-2.4) K/uL [place] # (Auto) 0.8 (0.0-0.8) K/uL Eos # (Auto) 0.1 (0.0-0.7) K/uL Baso # (Auto) 0.0 (0.0-0.1) K/uL Nucleated RBC % 0.0 /100WBC Nucleated RBCs # 0 K/uL Sodium 134 L (136-145) mmol/L Potassium 3.4 L (3.5-5.1) mmol/L Chloride 101 (98-107) mmol/L Carbon Dioxide 20.9 L (21.0-32.0) mmol/L BUN 4 L (7.0-18.0) mg/dL Creatinine 0.7 (0.6-1.0) mg/dL Est Cr Clr Drug Dosing 81.34 mL/min Estimated GFR (MDRD) > 60.0 ml/min Glucose 64 L (74-106) mg/dL Calcium 8.4 L (8.5-10.1) mg/dL Magnesium 1.9 (1.5-2.0) mg/dL Total Bilirubin 1.5 H (0.2-1.0) mg/dL AST 21 (15-37) IU/L ALT 60 (14-63) IU/L Alkaline Phosphatase 96 (46-116) U/L Total Protein 6.4 (6.4-8.2) g/dL Albumin 2.9 L (3.4-5.0) g/dL Globulin 3.5 (2.0-3.5) g/dL Albumin/Globulin Ratio 0.8 L (1.3-2.8) Lipase 665 H (73-393) U/L Dylan Results Last 24 Hours: Microbiology 07/11/17 19:50 Urine Culture - Final Urine, Clean Catch MIXED YANNICK >100,000 CFU/ML Med Orders - Current: Current Medications Folic Acid (Folic Acid) 1 mg SUBCUT DAILY [facility] Last Admin: 07/14/17 08:56 Dose: 1 mg Hydromorphone HCl (Dilaudid) 1 mg IVPUSH Q2H PRN PRN Reason: Pain Last Admin: 07/14/17 09:05 Dose: 1 mg Dextrose/Sodium Chloride (Dextrose 5%-1/2 Ns) 1,000 mls @ 125 mls/hr IV ASDIRECTED [facility] Last Admin: 07/14/17 10:55 Dose: 125 mls/hr Lorazepam (Ativan) 0 mg IVPUSH Q4H PRN; Protocol PRN Reason: Anxiety Nicotine (Habitrol) 21 mg TRDERM DAILY@2100 [facility] Last Admin: 07/13/17 21:06 Dose: 21 mg Ondansetron HCl (Zofran) 4 mg IVPUSH Q4H PRN PRN Reason: Nausea/Vomiting Last Admin: 07/13/17 21:05 Dose: 4 mg Pantoprazole Sodium (Protonix Iv) 40 mg IVPUSH DAILY [facility] Last Admin: 07/14/17 09:01 Dose: 40 mg Sodium Chloride (Saline Flush) 10 ml FLUSH ASDIRECTED PRN PRN Reason: Keep Vein Open Last Admin: 07/11/17 17:16 Dose: 10 ml Sodium Chloride (Saline Flush) 2.5 ml FLUSH ASDIRECTED PRN PRN Reason: Keep Vein Open Last Admin: 07/11/17 17:17 Dose: 2.5 ml Thiamine HCl (Vitamin B-1) 100 mg IV DAILY [facility] Last Admin: 07/14/17 08:58 Dose: 100 mg Discontinued Medications Hydromorphone HCl (Dilaudid) 1 mg IVPUSH ONETIME ONE Stop: 07/11/17 17:04 Last Admin: 07/11/17 17:20 Dose: 1 mg Hydromorphone HCl (Dilaudid) 1 mg IVPUSH Q4H PRN PRN Reason: Pain Last Admin: 07/11/17 20:57 Dose: 1 mg Sodium Chloride (Normal Saline) 1,000 mls @ 999 mls/hr IV STAT ONE Stop: 07/11/17 18:04 Last Admin: 07/11/17 17:17 Dose: 999 mls/hr Sodium Chloride (Normal Saline) 1,000 mls @ 999 mls/hr IV STAT ONE Stop: 07/11/17 20:37 Last Admin: 07/11/17 19:56 Dose: 999 mls/hr Lactated Ringer's (Ringers, Lactated) 1,000 mls @ 150 mls/hr IV ASDIRECTED [facility] Last Infusion: 07/14/17 10:54 Dose: Infused Potassium Chloride/Sodium Chloride (Normal Saline With 40 Meq Kcl) 1,000 mls @ 250 mls/hr IV ASDIRECTED [facility] Stop: 07/12/17 00:14 Last Admin: 07/11/17 21:06 Dose: 250 mls/hr Lactated Ringer's (Ringers, Lactated) 1,000 mls @ 999 mls/hr IV .BOLUS ONE Stop: 07/12/17 09:08 Last Admin: 07/12/17 08:19 Dose: 999 mls/hr Magnesium Sulfate 2 gm/ Premix 50 mls @ 50 mls/hr IV ONETIME ONE Stop: 07/13/17 10:50 Last Admin: 07/13/17 10:47 Dose: 50 mls/hr Iopamidol (Isovue Multipack-370 (76%)) 78 ml IVPUSH ONETIME ONE Stop: 07/12/17 12:05 Last Admin: 07/12/17 12:04 Dose: 78 ml Ondansetron HCl (Zofran) 4 mg IVPUSH ONETIME ONE Stop: 07/11/17 17:04 Last Admin: 07/11/17 17:17 Dose: 4 mg Pantoprazole Sodium (Protonix Iv) 80 mg IVPUSH .BOLUS ONE Stop: 07/11/17 17:05 Last Admin: 07/11/17 17:16 Dose: 80 mg Potassium Chloride (Klor-Con M20) 40 meq PO ONETIME ONE Stop: 07/14/17 11:17 - Exam General: Alert, Oriented, Cooperative, No Acute Distress HEENT: Pupils Equal, Pupils Reactive Neck: Supple Lungs: Clear to Auscultation, Normal Respiratory Effort Cardiovascular: Regular Rate, Regular Rhythm GI/Abdominal Exam: Normal Bowel Sounds, Soft, Guarding (mild), Tender (diffuse ) , Abnormal Bowel Sounds. No: Rigid, Rebound Extremities: Normal Inspection, No Pedal Edema, Normal Capillary Refill Skin: Warm, Dry, Intact Neurological: No New Focal Deficit Psy/Mental Status: Alert, Normal Affect, Suicidal Ideation - Problem List Review Problem List Initiated/Reviewed/Updated: Yes - My Orders Last 24 Hours: My Active Orders 07/14/17 10:45 Dextrose 5%-0.45% NaCl [Dextrose 5%-1/2 NS] 1,000 ml IV ASDIRECTED - Plan Plan:: 36 year old fm with history of chronic pancreatitis and alcohol use disorder admitted with acute on chronic alcoholic pancreatitis #Acute on chronic alcoholic pancreatitis, improving #Nausea & Vomiting, improving #Abdominal Pain, improving -advance to clear liquids, if tolerated then advance to full liquid for supper -de-escalate pain medication -continue IVF #Hypoglycemia -DC LR and start D5W w /2 NS -continue to monitor #Constipation -start miralax #Hypokalemia -replace and monitor #Alcohol Use Disorder -[facility] protocol -continue Thiamine, folic acind and protonix -consulted alcohol cessation VTE prophylaxis: SCDs and ambulation Dispo: 2-3 days pending continued improvement.
[2017-07-14] MEDS: Ondansetron 4 MG/2 ML SDV IVPUSH PRN ×2 (13:03→19:41)
[2017-07-14] MEDS: Polyethylene Glycol 3350 Powder 17 GM Packet PO SCH ×2 (13:09→20:39)
[2017-07-14] MEDS: Nicotine 21 MG/24 Hr Patch TRDERM SCH (20:39)
[2017-07-15] MEDS: HYDROmorphone 1 MG/ML Syringe IVPUSH PRN ×3 (01:17→08:24)
[2017-07-15] MEDS: Dextrose 5%-0.45% NaCl 1,000 ML IV SCH ×2 (04:53→13:12)
[2017-07-15 06:33] LABS: CHLORIDE,CL 103 mmol/L (98-107); SODIUM,NA 136 mmol/L (136-145)
[2017-07-15] MEDS: Thiamine 200 MG/2 ML MDV IV SCH (08:07)
[2017-07-15] MEDS: Pantoprazole 40 MG Vial IVPUSH SCH (08:12)
[2017-07-15] MEDS: Folic Acid 50 MG/10 ML MDV SUBCUT SCH (08:13)
[2017-07-15] MEDS: Polyethylene Glycol 3350 Powder 17 GM Packet PO SCH (08:17)
--- NOTE | 2017-07-15 09:55 | PCM.PN ---
- General Info Date of Service: 07/15/17 - Review of Systems Systems Review Comment:: abdominal pain has improved since she had a bowel movement this morning - Patient Data Vitals - Most Recent: Last Vital Signs Temp 36.8 C 07/15/17 04:00 Pulse 65 07/15/17 04:00 Resp 20 07/15/17 04:00 BP 135/75 07/15/17 04:00 Pulse Ox 95 07/15/17 04:00 Weight - Most Recent: 64.5 kg I&O - Last 24 Hours: Intake & Output 07/14/17 07/15/17 07/15/17 22:59 06:59 14:59 Intake Total 1215 1100 Output Total 1100 2550 Balance 115 -1450 Lab Results Last 24 Hours: Laboratory Results - last 24 hr 07/15/17 07/15/17 Range/Units 05:42 05:42 WBC 6.77 (4.0-11.0) K/uL RBC 3.31 L (4.30-5.90) M/uL Hgb 10.6 L (12.0-16.0) g/dL Hct 30.1 L (36.0-46.0) % MCV 90.9 (80.0-98.0) fL MCH 32.0 (27.0-32.0) pg MCHC 35.2 (31.0-37.0) g/dL RDW Std Deviation 41.7 (28.0-62.0) fl RDW Coeff of Kristi 13 (11.0-15.0) % Plt Count 196 (150-400) K/uL MPV 9.80 (7.40-12.00) fL Neut % (Auto) 67.1 (48.0-80.0) % Lymph % (Auto) 19.8 (16.0-40.0) % [place] % (Auto) 8.9 (0.0-15.0) % Eos % (Auto) 4.1 (0.0-7.0) % Baso % (Auto) 0.1 (0.0-1.5) % Neut # (Auto) 4.5 (1.4-5.7) K/uL Lymph # (Auto) 1.3 (0.6-2.4) K/uL [place] # (Auto) 0.6 (0.0-0.8) K/uL Eos # (Auto) 0.3 (0.0-0.7) K/uL Baso # (Auto) 0.0 (0.0-0.1) K/uL Nucleated RBC % 0.0 /100WBC Nucleated RBCs # 0 K/uL Sodium 136 (136-145) mmol/L Potassium 3.2 L (3.5-5.1) mmol/L Chloride 103 (98-107) mmol/L Carbon Dioxide 26.6 (21.0-32.0) mmol/L BUN 3 L (7.0-18.0) mg/dL Creatinine 0.7 (0.6-1.0) mg/dL Est Cr Clr Drug Dosing 81.34 mL/min Estimated GFR (MDRD) > 60.0 ml/min Glucose 124 H (74-106) mg/dL Calcium 8.3 L (8.5-10.1) mg/dL Magnesium 1.8 (1.5-2.0) mg/dL Total Bilirubin 0.9 (0.2-1.0) mg/dL AST 14 L (15-37) IU/L ALT 49 (14-63) IU/L Alkaline Phosphatase 77 (46-116) U/L Total Protein 6.1 L (6.4-8.2) g/dL Albumin 2.8 L (3.4-5.0) g/dL Globulin 3.3 (2.0-3.5) g/dL Albumin/Globulin Ratio 0.9 L (1.3-2.8) Lipase 760 H (73-393) U/L Med Orders - Current: Current Medications Folic Acid (Folic Acid) 1 mg SUBCUT DAILY [facility] Last Admin: 07/15/17 08:13 Dose: 1 mg Dextrose/Sodium Chloride (Dextrose 5%-1/2 Ns) 1,000 mls @ 125 mls/hr IV ASDIRECTED [facility] Last Admin: 07/15/17 04:53 Dose: 125 mls/hr Lorazepam (Ativan) 0 mg IVPUSH Q4H PRN; Protocol PRN Reason: Anxiety Nicotine (Habitrol) 21 mg TRDERM DAILY@2100 [facility] Last Admin: 07/14/17 20:39 Dose: 21 mg Ondansetron HCl (Zofran) 4 mg IVPUSH Q4H PRN PRN Reason: Nausea/Vomiting Last Admin: 07/14/17 19:41 Dose: 4 mg Pantoprazole Sodium (Protonix Iv) 40 mg IVPUSH DAILY [facility] Last Admin: 07/15/17 08:12 Dose: 40 mg Polyethylene Glycol (Miralax) 17 gm PO BID [facility] Last Admin: 07/15/17 08:17 Dose: 17 gm Sodium Chloride (Saline Flush) 10 ml FLUSH ASDIRECTED PRN PRN Reason: Keep Vein Open Last Admin: 07/11/17 17:16 Dose: 10 ml Sodium Chloride (Saline Flush) 2.5 ml FLUSH ASDIRECTED PRN PRN Reason: Keep Vein Open Last Admin: 07/11/17 17:17 Dose: 2.5 ml Thiamine HCl (Vitamin B-1) 100 mg IV DAILY [facility] Last Admin: 07/15/17 08:07 Dose: 100 mg Discontinued Medications Hydromorphone HCl (Dilaudid) 1 mg IVPUSH ONETIME ONE Stop: 07/11/17 17:04 Last Admin: 07/11/17 17:20 Dose: 1 mg Hydromorphone HCl (Dilaudid) 1 mg IVPUSH Q4H PRN PRN Reason: Pain Last Admin: 07/11/17 20:57 Dose: 1 mg Hydromorphone HCl (Dilaudid) 1 mg IVPUSH Q2H PRN PRN Reason: Pain Last Admin: 07/15/17 08:24 Dose: 1 mg Sodium Chloride (Normal Saline) 1,000 mls @ 999 mls/hr IV STAT ONE Stop: 07/11/17 18:04 Last Admin: 07/11/17 17:17 Dose: 999 mls/hr Sodium Chloride (Normal Saline) 1,000 mls @ 999 mls/hr IV STAT ONE Stop: 07/11/17 20:37 Last Admin: 07/11/17 19:56 Dose: 999 mls/hr Lactated Ringer's (Ringers, Lactated) 1,000 mls @ 150 mls/hr IV ASDIRECTED [facility] Last Infusion: 07/14/17 10:54 Dose: Infused Potassium Chloride/Sodium Chloride (Normal Saline With 40 Meq Kcl) 1,000 mls @ 250 mls/hr IV ASDIRECTED [facility] Stop: 07/12/17 00:14 Last Admin: 07/11/17 21:06 Dose: 250 mls/hr Lactated Ringer's (Ringers, Lactated) 1,000 mls @ 999 mls/hr IV .BOLUS ONE Stop: 07/12/17 09:08 Last Admin: 07/12/17 08:19 Dose: 999 mls/hr Magnesium Sulfate 2 gm/ Premix 50 mls @ 50 mls/hr IV ONETIME ONE Stop: 07/13/17 10:50 Last Admin: 07/13/17 10:47 Dose: 50 mls/hr Iopamidol (Isovue Multipack-370 (76%)) 78 ml IVPUSH ONETIME ONE Stop: 07/12/17 12:05 Last Admin: 07/12/17 12:04 Dose: 78 ml Ondansetron HCl (Zofran) 4 mg IVPUSH ONETIME ONE Stop: 07/11/17 17:04 Last Admin: 07/11/17 17:17 Dose: 4 mg Pantoprazole Sodium (Protonix Iv) 80 mg IVPUSH .BOLUS ONE Stop: 07/11/17 17:05 Last Admin: 07/11/17 17:16 Dose: 80 mg Potassium Chloride (Klor-Con M20) 40 meq PO ONETIME ONE Stop: 07/14/17 11:17 Last Admin: 07/14/17 12:01 Dose: 40 meq - Exam General: Alert, Oriented Lungs: Clear to Auscultation, Normal Respiratory Effort Cardiovascular: Regular Rate, Regular Rhythm GI/Abdominal Exam: Normal Bowel Sounds, Soft, Non-Tender Extremities: Non-Tender, No Pedal Edema Skin: Warm, Dry, Intact - Problem List Review Problem List Initiated/Reviewed/Updated: Yes - My Orders Last 24 Hours: My Active Orders 07/15/17 Lunch Clear Liquid Diet [DIET] 07/16/17 05:11 BASIC METABOLIC PANEL,BMP [CHEM] AM CBC WITH AUTO DIFF [HEME] AM - Plan Plan:: 36 year old fm with history of chronic pancreatitis and alcohol use disorder admitted with acute on chronic alcoholic pancreatitis #Acute on chronic alcoholic pancreatitis: improving will advance to clear liquid diet. #Alcohol Use Disorder -[facility] protocol -continue Thiamine, folic acind and protonix -consulted alcohol cessation VTE prophylaxis: SCDs and ambulation Dispo:1-2 days pending continued improvement.
--- NOTE | 2017-07-15 15:39 | PCM.DCSUM1 ---
Discharge Summary - Discharge Data Discharge Date: 07/15/17 Discharge Disposition: Home, Self-Care 01 Condition: Good - Patient Summary/Data Hospital Course: 36 year old female who was admitted ofr alcoholic pancreatitis. She presented to the ED with nausea, vomiting and epigastric pain. Patient has a previous history of alcoholic pancreatitis. Her last admission was 06/17/2017. After discharge she abstained from drinking except on 07/09/2017, she drank about a pint of hortencia. The following two days she had symptoms of nausea, vomiting and sharp epigastric pain. Her symptoms gradually worsened and she decided to be seen in the ED. She was found to have a lipase of 7673. Her WBC count was WNL. Her potassium was low at 3.2. U/S of the abdomen was reported as unremarkable CT scan of abdomen was consistent with pancreatitis. She was treated with IV fluids and bowel rest. Pain gradually improved and today she is tolerating an oral diet without pain or taking pain medications. She was discharged home to follow up with her PCP. - Patient Instructions Diet: Usual Diet as Tolerated Driving: Do Not Drive Showering/Bathing: May Shower Notify Provider of: Fever, Increased Pain, Swelling and Redness, Drainage, Nausea and/or Vomiting Other/Special Instructions: Please provide resources of: AA meeting list, [facility], and human services - Discharge Plan Home Medications: Home Meds . [No Known Home Meds] 07/11/17 [History] Patient Handouts: Acute Pancreatitis, [id number] Referrals: Elsy Hwang PA [[facility]] - 07/20/17 3:15 pm - Patient Data Vitals - Most Recent: Last Vital Signs Temp 36.6 C 07/15/17 12:00 Pulse 73 07/15/17 12:00 Resp 16 07/15/17 12:00 BP 176/95 H 07/15/17 12:00 Pulse Ox 100 07/15/17 12:00 Weight - Most Recent: 64.5 kg I&O - Last 24 hours: Intake & Output 07/15/17 07/15/17 07/15/17 06:59 14:59 22:59 Intake Total 1100 Output Total 2550 Balance -1450 Lab Results - Last 24 hrs: Laboratory Results - last 24 hr 07/15/17 07/15/17 Range/Units 05:42 05:42 WBC 6.77 (4.0-11.0) K/uL RBC 3.31 L (4.30-5.90) M/uL Hgb 10.6 L (12.0-16.0) g/dL Hct 30.1 L (36.0-46.0) % MCV 90.9 (80.0-98.0) fL MCH 32.0 (27.0-32.0) pg MCHC 35.2 (31.0-37.0) g/dL RDW Std Deviation 41.7 (28.0-62.0) fl RDW Coeff of Kristi 13 (11.0-15.0) % Plt Count 196 (150-400) K/uL MPV 9.80 (7.40-12.00) fL Neut % (Auto) 67.1 (48.0-80.0) % Lymph % (Auto) 19.8 (16.0-40.0) % [place] % (Auto) 8.9 (0.0-15.0) % Eos % (Auto) 4.1 (0.0-7.0) % Baso % (Auto) 0.1 (0.0-1.5) % Neut # (Auto) 4.5 (1.4-5.7) K/uL Lymph # (Auto) 1.3 (0.6-2.4) K/uL [place] # (Auto) 0.6 (0.0-0.8) K/uL Eos # (Auto) 0.3 (0.0-0.7) K/uL Baso # (Auto) 0.0 (0.0-0.1) K/uL Nucleated RBC % 0.0 /100WBC Nucleated RBCs # 0 K/uL Sodium 136 (136-145) mmol/L Potassium 3.2 L (3.5-5.1) mmol/L Chloride 103 (98-107) mmol/L Carbon Dioxide 26.6 (21.0-32.0) mmol/L BUN 3 L (7.0-18.0) mg/dL Creatinine 0.7 (0.6-1.0) mg/dL Est Cr Clr Drug Dosing 81.34 mL/min Estimated GFR (MDRD) > 60.0 ml/min Glucose 124 H (74-106) mg/dL Calcium 8.3 L (8.5-10.1) mg/dL Magnesium 1.8 (1.5-2.0) mg/dL Total Bilirubin 0.9 (0.2-1.0) mg/dL AST 14 L (15-37) IU/L ALT 49 (14-63) IU/L Alkaline Phosphatase 77 (46-116) U/L Total Protein 6.1 L (6.4-8.2) g/dL Albumin 2.8 L (3.4-5.0) g/dL Globulin 3.3 (2.0-3.5) g/dL Albumin/Globulin Ratio 0.9 L (1.3-2.8) Lipase 760 H (73-393) U/L Med Orders - Current: Current Medications Folic Acid (Folic Acid) 1 mg SUBCUT DAILY [facility] Last Admin: 07/15/17 08:13 Dose: 1 mg Dextrose/Sodium Chloride (Dextrose 5%-1/2 Ns) 1,000 mls @ 125 mls/hr IV ASDIRECTED [facility] Last Admin: 07/15/17 13:12 Dose: 125 mls/hr Lorazepam (Ativan) 0 mg IVPUSH Q4H PRN; Protocol PRN Reason: Anxiety Nicotine (Habitrol) 21 mg TRDERM DAILY@2100 [facility] Last Admin: 07/14/17 20:39 Dose: 21 mg Ondansetron HCl (Zofran) 4 mg IVPUSH Q4H PRN PRN Reason: Nausea/Vomiting Last Admin: 07/14/17 19:41 Dose: 4 mg Pantoprazole Sodium (Protonix Iv) 40 mg IVPUSH DAILY [facility] Last Admin: 07/15/17 08:12 Dose: 40 mg Polyethylene Glycol (Miralax) 17 gm PO BID [facility] Last Admin: 07/15/17 08:17 Dose: 17 gm Sodium Chloride (Saline Flush) 10 ml FLUSH ASDIRECTED PRN PRN Reason: Keep Vein Open Last Admin: 07/11/17 17:16 Dose: 10 ml Sodium Chloride (Saline Flush) 2.5 ml FLUSH ASDIRECTED PRN PRN Reason: Keep Vein Open Last Admin: 07/11/17 17:17 Dose: 2.5 ml Thiamine HCl (Vitamin B-1) 100 mg IV DAILY [facility] Last Admin: 07/15/17 08:07 Dose: 100 mg Discontinued Medications Hydromorphone HCl (Dilaudid) 1 mg IVPUSH ONETIME ONE Stop: 07/11/17 17:04 Last Admin: 07/11/17 17:20 Dose: 1 mg Hydromorphone HCl (Dilaudid) 1 mg IVPUSH Q4H PRN PRN Reason: Pain Last Admin: 07/11/17 20:57 Dose: 1 mg Hydromorphone HCl (Dilaudid) 1 mg IVPUSH Q2H PRN PRN Reason: Pain Last Admin: 07/15/17 08:24 Dose: 1 mg Sodium Chloride (Normal Saline) 1,000 mls @ 999 mls/hr IV STAT ONE Stop: 07/11/17 18:04 Last Admin: 07/11/17 17:17 Dose: 999 mls/hr Sodium Chloride (Normal Saline) 1,000 mls @ 999 mls/hr IV STAT ONE Stop: 07/11/17 20:37 Last Admin: 07/11/17 19:56 Dose: 999 mls/hr Lactated Ringer's (Ringers, Lactated) 1,000 mls @ 150 mls/hr IV ASDIRECTED [facility] Last Infusion: 07/14/17 10:54 Dose: Infused Potassium Chloride/Sodium Chloride (Normal Saline With 40 Meq Kcl) 1,000 mls @ 250 mls/hr IV ASDIRECTED [facility] Stop: 07/12/17 00:14 Last Admin: 07/11/17 21:06 Dose: 250 mls/hr Lactated Ringer's (Ringers, Lactated) 1,000 mls @ 999 mls/hr IV .BOLUS ONE Stop: 07/12/17 09:08 Last Admin: 07/12/17 08:19 Dose: 999 mls/hr Magnesium Sulfate 2 gm/ Premix 50 mls @ 50 mls/hr IV ONETIME ONE Stop: 07/13/17 10:50 Last Admin: 07/13/17 10:47 Dose: 50 mls/hr Iopamidol (Isovue Multipack-370 (76%)) 78 ml IVPUSH ONETIME ONE Stop: 07/12/17 12:05 Last Admin: 07/12/17 12:04 Dose: 78 ml Ondansetron HCl (Zofran) 4 mg IVPUSH ONETIME ONE Stop: 07/11/17 17:04 Last Admin: 07/11/17 17:17 Dose: 4 mg Pantoprazole Sodium (Protonix Iv) 80 mg IVPUSH .BOLUS ONE Stop: 07/11/17 17:05 Last Admin: 07/11/17 17:16 Dose: 80 mg Potassium Chloride (Klor-Con M20) 40 meq PO ONETIME ONE Stop: 07/14/17 11:17 Last Admin: 07/14/17 12:01 Dose: 40 meq
== END 2017-07-15 16:50 | disposition home or self-care (01) | DRG 440 ==
LOC: MW.ED 16:52 → MW.MS 19:36
PROVIDERS: ADMIT Family Medicine; ATTEND Family Medicine
DX: K85.20 Alcohol induced acute pancreatitis without necrosis or infection (principal); E87.6 Hypokalemia; F17.200 Nicotine dependence, unspecified, uncomplicated; E16.2 Hypoglycemia, unspecified; K59.00 Constipation, unspecified; R74.0 Nonspecific elevation of levels of transaminase and lactic acid dehydrogenase [LDH]; Z88.0 Allergy status to penicillin; Z88.7 Allergy status to serum and vaccine
CPT/HCPCS: 36415; 71045; 71045-26; 74177; 74177-26; 76705; 76705-26; 80053; 80061; 81001; 82150; 83690; 83735; 84100; 84702; 85025; 87086; 93005; 96361; 96374; 96375; 99285-25; A9270-GY; C9113; J1170; J2405; J3411; J3475; J3480; J7040; J7042; J7120; Q9967